=== PATIENT | female | born 1980 | race Two or more races ===

== ENCOUNTER 2017-06-09 10:12 | Inpatient (IN) | payer OTHER ==
[2017-06-09 10:21] VITALS: BMI 27.2
[2017-06-09] MEDS ORDERED: SODIUM CHLORIDE 1,000 ML IV STA ×2 (11:04→17:08)
[2017-06-09] MEDS ORDERED: ACETAMINOPHEN 1000 MG/100 ML VIAL (NON FORMULARY) IVPB ONE (11:04)
[2017-06-09] MEDS ORDERED: ACETAMINOPHEN INJECTION 100 ML IVPB ONE (11:18)
--- NOTE | 2017-06-09 11:22 | PDOC ---
History of Present Illness <Emilee Pastor - Last Filed: 06/09/17 15:29> - History of Present Illness Initial Comments: 06/09/17 11:18 "The patient is a 37 year old female, with significant past medical history of frequent UTIs, kidney stones, and type II diabetes, who presents to the emergency room today complaining of 3 days of right sided flank pain, fever, and 1 episode of vomiting this morning. The R flank pain is non-radiating, constant, and is not exacerbated with movement. She notes that she was at work when she had 1 episode of yellow emesis this morning. Last month she was treated for 2 UTIs and at the time she had hematuria, and dysuria which have resolved. Pt currently denies dysuria. Denies vaginal bleeding/discharge. Denies diarrhea and abdominal pain. Denies any trauma or heavy lifting. Denies sick contact. Denies recent travel. Denies vaginal discharge. Allergies: NKDA PCP: Dr. Aiden Shah " <Jarett Fenton - Last Filed: 06/09/17 15:39> - General Chief Complaint: Pain, Acute Stated Complaint: KIDNEY PAIN Time Seen by Provider: 06/09/17 10:39 Past History <Liss Pastorica - Last Filed: 06/09/17 15:29> - Past Medical History Asthma: No Cancer: No Cardiac Disorders: No Diabetes: Yes HTN: No Kidney Stones: Yes Seizures: No Thyroid Disease: No - Immunization History Immunization Up to Date: Yes - Suicide/Smoking/Psychosocial Hx Smoking History: Never smoked Have you smoked in the past 12 months: No Hx Alcohol Use: No Drug/Substance Use Hx: No Substance Use Type: None Hx Substance Use Treatment: No <Jarett Fenton - Last Filed: 06/09/17 15:39> - Past Medical History Allergies/Adverse Reactions: Allergies Allergy/AdvReac Type Severity Reaction Status Date / Time No Known Drug Allergies Allergy Verified 06/09/17 10:21 Home Medications: Ambulatory Orders Canagliflozin/Metformin HCl [Invokamet Xr 50-1,000 mg Tab] 2 each PO DAILY 06/09 Review of Systems - Review of Systems Comments:: 06/09/17 11:21 " GENERAL/CONSTITUTIONAL:+fever No chills. No weakness. HEAD, EYES, EARS, NOSE AND THROAT: No change in vision. No ear pain or discharge. No sore throat. CARDIOVASCULAR: No chest pain or shortness of breath. RESPIRATORY: No cough, wheezing, or hemoptysis. GASTROINTESTINAL: +1 episode of vomiting.No diarrhea or constipation. GENITOURINARY: No dysuria, frequency, or change in urination. MUSCULOSKELETAL:+right flank pain. No neck pain. SKIN: No rash NEUROLOGIC: No headache, vertigo, loss of consciousness, or change in strength/ sensation. ENDOCRINE: No increased thirst. No abnormal weight change. HEMATOLOGIC/LYMPHATIC: No anemia, easy bleeding, or history of blood clots. ALLERGIC/IMMUNOLOGIC: No hives or skin allergy." <JossyJarett - Last Filed: 06/09/17 15:39> *Physical Exam - Vital Signs Last Vital Signs Temp Pulse Resp BP Pulse Ox 98.1 F 79 18 110/62 99 06/09/17 13:12 06/09/17 13:12 06/09/17 13:12 06/09/17 13:12 06/09/17 13:12 <Emilee Pastor - Last Filed: 06/09/17 15:29> - Vital Signs Last Vital Signs Temp Pulse Resp BP Pulse Ox 100.2 F H 118 H 20 136/74 99 06/09/17 10:18 06/09/17 10:18 06/09/17 10:18 06/09/17 10:18 06/09/17 10:18 - Physical Exam Comments: 06/09/17 11:21 "GENERAL: Awake, alert, and fully oriented, in no acute distress HEAD: No signs of trauma EYES: PERRLA, EOMI, sclera anicteric, conjunctiva clear ENT: Auricles normal inspection, hearing grossly normal, nares patent, oropharynx clear without exudates. Moist mucosa NECK: Nontender, no stepoffs, Normal ROM, supple, no lymphadenopathy, JVD, or masses LUNGS: Breath sounds equal, clear to auscultation bilaterally. No wheezes, and no crackles HEART: Regular rate and rhythm, normal S1 and S2, no murmurs, rubs or gallops ABDOMEN: Soft, nontender, normoactive bowel sounds. No guarding, no rebound. No masses BACK: No CVA tenderness EXTREMITIES: Normal range of motion, no edema. No clubbing or cyanosis. No cords, erythema, or tenderness NEUROLOGICAL: Cranial nerves II through XII intact. 5/5 strength and sensation in all extremities, Normal speech, normal gait SKIN: Warm, Dry, normal turgor, no rashes or lesions noted." <Jarett Fenton - Last Filed: 06/09/17 15:39> ED Treatment Course - LABORATORY CBC & Chemistry Diagram: 06/09/17 11:40 06/09/17 11:40 - ADDITIONAL ORDERS Additional order review: Laboratory Results 06/09/17 06/09/17 11:40 11:11 Sodium 134 L Potassium 3.9 Chloride 99 Carbon Dioxide 26 Anion Gap 9 BUN 11 Creatinine 0.7 D Creat Clearance w eGFR > 60 Random Glucose 146 H D Calcium 8.6 Total Bilirubin 0.6 D AST 9 L D ALT 18 D Alkaline Phosphatase 86 D Total Protein 7.4 D Albumin 3.5 D Urine Color Yellow Urine Appearance Cloudy Urine pH 6.0 Urine Protein 1+ H Urine Glucose (UA) 3+ H Urine Ketones Trace H Urine Blood 2+ H Urine Nitrite Negative Urine Bilirubin Negative Urine Urobilinogen Negative Urine RBC 80 Urine WBC 626 Ur Epithelial Cells Few Urine Mucus Rare Urine HCG, Qual Negative 06/09/17 11:40 RBC 4.52 MCV 87.5 MCHC 32.9 RDW 12.7 MPV 8.2 D Neutrophils % 77.1 Lymphocytes % 11.2 D Monocytes % 11.1 H Eosinophils % 0.1 Basophils % 0.5 D - RADIOLOGY Radiograph Interpretation: 06/09/17 14:20 EXAM#: TYPE/EXAM: RESULT: [id number] RAD/CHEST PA LAT HISTORY PROVIDED: Fever . PA and lateral projections of the chest are submitted. The heart size is within normal limits. The lung roca are free of pulmonary infiltrates or pleural effusions. IMPRESSION: Normal chest. Reported By: Chriss Zabala MD 06/09/17 1342 06/09/17 15:21 EXAM: CT abdomen and pelvis without IV contrast COMPARISON: None. FINDINGS: Evaluation of the solid viscera, bowel and vessels is limited without contrast. There is no left renal or ureteral calculus. There is no left hydroureteronephrosis. There is lamellated , large staghorn calculus centered in the right renal pelvis extending into multiple major calyces of the right kidney and into the right ureteropelvic junction. It is difficult to measure this calculus, however it measures at least 2.8 x 1.6 x 2.9 cm in maximum transverse, AP and craniocaudal dimensions. There is resultant severe right hydronephrosis with asymmetric enlargement of the right kidney. No evidence of urinary bladder calculus or urinary bladder wall thickening. There are trace, bilateral layering pleural effusions with minimal dependent change in the left lung base. The heart is not enlarged. The liver is enlarged measuring up to 17 cm in length at the midclavicular line. There is moderate hepatic steatosis with geographic areas of sparing in the gallbladder fossa and caudate lobe. The gallbladder is not hydropic. The common bile duct is not dilated. The unenhanced pancreas is unremarkable. The spleen is borderline in size measuring up to 12.7 cm in length. There is no mass in the adrenal glands. The abdominal aorta is of normal caliber. There are nonspecific shotty subcentimeter aortocaval and para-aortic retroperitoneal lymph nodes. No dilated loops of large or small bowel to suggest obstruction. Normal- appearing appendix. Few diverticula scattered along the descending and sigmoid colon with no evidence of acute diverticulitis. No free intraperitoneal air or ascites. The uterus is unremarkable. Bilateral ovaries are prominent in size. There appear to be multiple cysts along the periphery of the left ovary. There are no pathologically enlarged pelvic sidewall lymph nodes by size criteria. There is asymmetric sclerosis in the left superior and inferior pubic rami which are presumably related to osteitis pubis subcentimeter sclerotic foci within the right acetabulum and right femoral head are most likely an enostosis. IMPRESSION: 1. Large right renal staghorn calculus as described above measuring at least 2.8 x 1.6 x 2.9 cm with resultant severe right hydronephrosis. Relative enlargement of the right kidney is likely secondary to severe right hydronephrosis, however, superimposed pyelonephritis cannot be excluded radiologically. Please correlate clinically. 2. Hepatomegaly and hepatic steatosis. 3. Prominent sized ovaries (left more than right) with suggestion of multiple peripheral cysts. This can be assessed to better advantage with pelvic sonogram, which may be performed non-emergently. Reported By: Lia Goncalves MD 06/09/17 [id number] - Medications Given in the ED: ED Medications Discontinued Medications Generic Name Dose Route Start Last Admin Trade Name Freq PRN Reason Stop Dose Admin Acetaminophen 1,000 mg 06/09/17 11:04 06/09/17 11:37 Ofirmev Injection - IVPB 06/09/17 11:05 1,000 mg ONCE ONE Administration Sodium Chloride 1,000 mls @ 1,000 mls/hr 06/09/17 11:04 06/09/17 11:37 Normal Saline - IV 06/09/17 12:03 1,000 mls/hr ASDIR STA Administration Ceftriaxone Sodium 1 gm/ 50 mls @ 100 mls/hr 06/09/17 13:17 06/09/17 13:30 Dextrose IVPB 06/09/17 13:46 100 mls/hr ONCE ONE Administration <Emilee Pastor - Last Filed: 06/09/17 15:29> - LABORATORY CBC & Chemistry Diagram: 06/09/17 11:40 06/09/17 11:40 - RADIOLOGY Radiology Studies Ordered: Category Date Time Status CHEST PA & LAT [RAD] Stat Radiology 06/09/17 11:04 Ordered <Jarett Fenton - Last Filed: 06/09/17 15:39> Medical Decision Making - Medical Decision Making 06/09/17 15:20 06/09/17 15:21 Dr. Queen was paged at [phone]. Awaiting call back 06/09/17 15:29 Dr. Queen called back and spoke with Dr. Fenton. <Emilee Pastor - Last Filed: 06/09/17 15:29> - Medical Decision Making 06/09/17 11:21 37 F with R flank pain, fevers, and nausea + vomiting. Concerning for pyelo vs kidney stone. No respiratory symptoms to suggest PNA. No GI symptoms other than 1 episode of vomiting. - Labs, UA - CXR - Consider CTAP to r/o infected stone - IVF, tylenol 06/09/17 15:38 Pt has UTI on today's labs. CT shows R sided staghorn calculus. Pt started on ceftriaxone IV Spoke with Dr. Barnett, who recommends admission for IV abx. He will evaluate pt. Case discussed in detail with admitting physician including history, physical exam and ancillary studies. Admitting physician has assumed care for the patient and will follow all pending diagnostics and complete the evaluation and treatment. <Jarett Fenton - Last Filed: 06/09/17 15:39> *DC/Admit/Observation/Transfer - Attestations Scribe Attestion: 06/09/17 14:34 Documentation prepared by ETHEL aCrvajal, acting as medical office receptionist assistant for Jarett Fenton MD. <Emilee Pastor - Last Filed: 06/09/17 15:29> - Discharge Dispostion Admit: Yes <Jarett Fenton - Last Filed: 06/09/17 15:39> Diagnosis at time of Disposition: Staghorn calculus, UTI (urinary tract infection) - Referrals Referrals: Aiden Shah MD [Primary Care Provider] -
[2017-06-09 11:53] LABS: BASOPHIL 0.5 % (0-2.0); EOSINOPHIL 0.1 % (0-4.5); MCH 28.8 pg (25.7-33.7); MCHC 32.9 g/dl (32.0-36.0); MEAN CELL VOLUME 87.5 fl (80-96); MEAN PLT VOLUME 8.2 fl (7.5-11.1); NEUTROPHILS 77.1 % (42.8-82.8); PLATELET COUNT 303 K/MM3 (134-434); RDW 12.7 % (11.6-15.6); WHITE BLOOD COUNT 16.3 K/mm3 (4.0-10.0)
[2017-06-09 12:29] LABS: ALBUMIN 3.5 g/dl (3.4-5.0); ANION GAP 9 (8-16); CALCIUM 8.6 mg/dL (8.5-10.1); CO2 26 mmol/L (21-32); CREATININE 0.7 mg/dL (0.55-1.02); GLUCOSE,RANDOM 146 mg/dL (74-106); SGOT/AST 9 U/L (15-37); SGPT/ALT 18 U/L (12-78)
[2017-06-09 12:31] LABS: ALK PHOS 86 U/L (45-117); BILIRUBIN,TOTAL 0.6 mg/dL (0.2-1.0); TOT PROT 7.4 g/dl (6.4-8.2)
[2017-06-09 12:46] LABS: URINE APPEARANCE CLOUDY; URINE BILIRUBIN NEGATIVE (NEGATIVE); URINE BLOOD 2+ (NEGATIVE); URINE COLOR YELLOW; URINE GLUCOSE (UA) 3+ (NEGATIVE); URINE KETONE TRACE (NEGATIVE); URINE LEUK ESTERASE 3+ (NEGATIVE); URINE NITRITE NEGATIVE (NEGATIVE); URINE PROTEIN 1+ (NEGATIVE); URINE UROBILINOGEN NEGATIVE mg/dL (0.2-1.0)
[2017-06-09 12:59] LABS: URINE MUCUS RARE; URINE RBC 80 /hpf (0-3); URINE WBC 626 /hpf (3-5)
[2017-06-09] MEDS ORDERED: CEFTRIAXONE 1 GM in DEXTROSE 5%-WATER - 50 ML IVPB ONE (13:17)
[2017-06-09] MEDS ORDERED: CEFTRIAXONE 50 ML ONE ×2 (13:44→17:17)
[2017-06-09] MEDS ORDERED: IBUPROFEN 600 MG TABLET (FP) PO ONE ×2 (15:58→16:38)
[2017-06-09] MEDS ORDERED: cefTRIAXone SODIUM 1 GM VIAL IM ONE (16:50)
--- NOTE | 2017-06-09 17:22 | PN ---
Teaching Attending Note Name of Resident: Rosales Vila ATTENDING PHYSICIAN STATEMENT I saw and evaluated the patient. I reviewed the resident's note and discussed the case with the resident. I agree with the resident's findings and plan as documented. SUBJECTIVE: OBJECTIVE: Vital Signs Temperature 102.3 F H 06/09/17 16:00 Pulse Rate 115 H 06/09/17 16:00 Respiratory Rate 17 06/09/17 16:00 Blood Pressure 120/78 06/09/17 16:00 O2 Sat by Pulse Oximetry (%) 98 06/09/17 16:00 CBCD WBC 16.3 K/mm3 (4.0-10.0) H 06/09/17 11:40 RBC 4.52 M/mm3 (3.60-5.2) 06/09/17 11:40 Hgb 13.0 GM/dL (10.7-15.3) D 06/09/17 11:40 Hct 39.5 % (32.4-45.2) D 06/09/17 11:40 MCV 87.5 fl (80-96) 06/09/17 11:40 MCHC 32.9 g/dl (32.0-36.0) 06/09/17 11:40 RDW 12.7 % (11.6-15.6) 06/09/17 11:40 Plt Count 303 K/MM3 (134-434) D 06/09/17 11:40 MPV 8.2 fl (7.5-11.1) D 06/09/17 11:40 CMP Sodium 134 mmol/L (136-145) L 06/09/17 11:40 Potassium 3.9 mmol/L (3.5-5.1) 06/09/17 11:40 Chloride 99 mmol/L (98-107) 06/09/17 11:40 Carbon Dioxide 26 mmol/L (21-32) 06/09/17 11:40 Anion Gap 9 (8-16) 06/09/17 11:40 BUN 11 mg/dL (7-18) 06/09/17 11:40 Creatinine 0.7 mg/dL (0.55-1.02) D 06/09/17 11:40 Creat Clearance w eGFR > 60 (>60) 06/09/17 11:40 Random Glucose 146 mg/dL (74-106) H D 06/09/17 11:40 Calcium 8.6 mg/dL (8.5-10.1) 06/09/17 11:40 Total Bilirubin 0.6 mg/dL (0.2-1.0) D 06/09/17 11:40 AST 9 U/L (15-37) L D 06/09/17 11:40 ALT 18 U/L (12-78) D 06/09/17 11:40 Alkaline Phosphatase 86 U/L (45-117) D 06/09/17 11:40 Total Protein 7.4 g/dl (6.4-8.2) D 06/09/17 11:40 Albumin 3.5 g/dl (3.4-5.0) D 06/09/17 11:40 Current Medications Generic Name Dose Route Start Last Admin Trade Name Freq PRN Reason Stop Dose Admin Ceftriaxone Sodium 1 gm 06/09/17 16:50 Rocephin - IM 06/09/17 16:51 ONCE ONE Sodium Chloride 1,000 mls @ 1,000 mls/hr 06/09/17 17:08 Normal Saline - IV 06/09/17 18:07 ASDIR STA Home Medications Medication Instructions Recorded Canagliflozin/Metformin HCl 1 each PO AM 06/09/17 [Invokamet 150-500 mg Tablet] Canagliflozin/Metformin HCl 2 each PO HS 06/09/17 [Invokamet 50-500 mg Tablet] ASSESSMENT AND PLAN: # acute pylonephritis # Acute sepsis, panculture , trend lactic, Ua/urine cx, urology on the case Dr.Ficcazola Ramirez 2gm IV given in ED. patient is going to OR tonight by urologist # T2dm hold metformin for now. Sliding scale with coverage. DVT px: SCDs
--- NOTE | 2017-06-09 18:16 | HP ---
CHIEF COMPLAINT: back pain; PCP: HISTORY OF PRESENT ILLNESS: 37 year old female with a past medical history of urinary tract infections, presents to the emergency room with right sided back pain, increased urinary burning and urgency. Patient was last treated for UTI one month ago, she states she took 7 days of antibiotic but the symptoms returned. Previous urine culture 04/29 for positive for E. Coli, barnes sensitive. ER course was notable for: fever, elevated white count, elevated lactic acid. Ct of abd/pelvis showing large right staghorn calculi with right hydronephrosis. Recent Travel: PAST MEDICAL HISTORY: UTI, DMII PAST SURGICAL HISTORY: Social History: Smoking:no Alcohol:no Drugs: no Family History: Allergies No Known Drug Allergies Allergy (Verified 06/09/17 10:21) HOME MEDICATIONS: Home Medications Medication Instructions Recorded Canagliflozin/Metformin HCl 1 each PO AM 06/09/17 [Invokamet 150-500 mg Tablet] Canagliflozin/Metformin HCl 2 each PO HS 06/09/17 [Invokamet 50-500 mg Tablet] REVIEW OF SYSTEMS CONSTITUTIONAL: Positive: fever, chills, Absent: diaphoresis, generalized weakness, malaise, loss of appetite, weight change HEENT: Absent: rhinorrhea, nasal congestion, throat pain, throat swelling, difficulty swallowing, mouth swelling, ear pain, eye pain, visual changes CARDIOVASCULAR: Absent: chest pain, syncope, palpitations, irregular heart rate, lightheadedness , peripheral edema RESPIRATORY: Absent: cough, shortness of breath, dyspnea with exertion, orthopnea, wheezing, stridor, hemoptysis GASTROINTESTINAL: Absent: abdominal pain, abdominal distension, nausea, vomiting, diarrhea, constipation, melena, hematochezia GENITOURINARY: Absent: dysuria, frequency, urgency, hesitancy, hematuria, flank pain, genital pain MUSCULOSKELETAL: POsitive: back pain Absent: myalgia, arthralgia, joint swelling, back pain, neck pain SKIN: Absent: rash, itching, pallor HEMATOLOGIC/IMMUNOLOGIC: Absent: easy bleeding, easy bruising, lymphadenopathy, frequent infections ENDOCRINE: Absent: unexplained weight gain, unexplained weight loss, heat intolerance, cold intolerance NEUROLOGIC: Absent: headache, focal weakness or paresthesias, dizziness, unsteady gait, seizure, mental status changes, bladder or bowel incontinence PSYCHIATRIC: Absent: anxiety, depression, suicidal or homicidal ideation, hallucinations. PHYSICAL EXAMINATION Vital Signs - 24 hr 06/09/17 16:00 Temperature 102.3 F H Pulse Rate [ 115 H Apical] Respiratory 17 Rate Blood Pressure 120/78 [Right Arm] O2 Sat by Pulse 98 Oximetry (%) GENERAL: Awake, alert, and fully oriented, in no acute distress. HEAD: Normal with no signs of trauma. EYES: Pupils equal, round and reactive to light, extraocular movements intact, sclera anicteric, conjunctiva clear. No lid lag. EARS, NOSE, THROAT: Ears normal, nares patent, oropharynx clear without exudates. Moist mucous membranes. NECK: Normal range of motion, supple without lymphadenopathy, JVD, or masses. LUNGS: Breath sounds equal, clear to auscultation bilaterally. No wheezes, and no crackles. No accessory muscle use. HEART: Regular rate and rhythm, normal S1 and S2 without murmur, rub or gallop. ABDOMEN: Soft, nontender, not distended, normoactive bowel sounds, no guarding, no rebound, no masses. No hepatomegaly or splenomegaly. MUSCULOSKELETAL: Normal range of motion at all joints. No bony deformities or tenderness. No CVA tenderness. UPPER EXTREMITIES: 2+ pulses, warm, well-perfused. No cyanosis. No clubbing. No peripheral edema. LOWER EXTREMITIES: 2+ pulses, warm, well-perfused. No calf tenderness. No peripheral edema. NEUROLOGICAL: Cranial nerves II-XII intact. Normal speech. Normal gait. PSYCHIATRIC: Cooperative. Good eye contact. Appropriate mood and affect. SKIN: Warm, dry, normal turgor, no rashes or lesions noted, normal capillary refill. ASSESSMENT/PLAN: 37 year olf female with a past medical history of UTI's presents with right back pain and urinary symptoms, found to be sepstic with acute pyelonephritis. #sepsis secondary to pyelonephritis with obstructing stone -trend lactate, wbc -Tylenol -IV ceftiaxone -f/u blood and urine culture -urology consult; will go for right nephrostomy tube #DM -insulin ss; bgm dvt ppl Visit type - Emergency Visit Emergency Visit: Yes ED Registration Date: 06/09/17 Care time: The patient presented to the Emergency Department on the above date and was hospitalized for further evaluation of their emergent condition. - New Patient This patient is new to me today: Yes Date on this admission: 06/09/17 - Critical Care Critical Care patient: No
[2017-06-09] MEDS ORDERED: PNEUMOC 13-VAL CONJ-DIP CRM/PF 0.5 ML DISP.SYRIN IM ONE (18:46)
--- NOTE | 2017-06-09 18:55 | CON.GU ---
Consult - History of Present Illness History of Present Illness: 37 yo female with h/o recurrent utis and remote h/o nephrolithiaisis. Now with right flank pain, fever. CT shows Staghorn calculus of rt kidney with hydronephrosis. Pt has elevated WBC of 16 and lactic acid of 4 - Past Medical History Cardio/Vascular: Yes: HTN. No: CHF ...LMP: 04/20/16 Endocrine: Yes: Diabetes Mellitus (Type 2 - follows with endocrinology). No: Hyperthyroidism, Hypothyroidism - Past Surgical History Past Surgical History: Yes: - Alcohol/Substance Use Hx Alcohol Use: No History of Substance Use: reports: None - Smoking History Smoking history: Never smoked Have you smoked in the past 12 months: No - Social History ADL: Independent History of Recent Travel: No Home Medications - Allergies Allergies/Adverse Reactions: Allergies Allergy/AdvReac Type Severity Reaction Status Date / Time No Known Drug Allergies Allergy Verified 06/09/17 10:21 - Home Medications Home Medications: Ambulatory Orders Canagliflozin/Metformin HCl [Invokamet Xr 50-1,000 mg Tab] 1 each PO BID Review of Systems - Review of Systems Genitourinary: reports: Burning Physical Exam- Vital Signs: Vital Signs Temperature 101 F H 06/09/17 17:45 Pulse Rate 112 H 06/09/17 17:45 Respiratory Rate 18 06/09/17 17:45 Blood Pressure 138/90 06/09/17 17:45 O2 Sat by Pulse Oximetry (%) 98 06/09/17 17:45 Imaging - Results Cat Scan: Image Reviewed Problem List - Problems (1) Staghorn calculus Assessment/Plan: In light of fever, elevated WBC, lactic acidosis, and obstructing stone, will plan for emergent right nephrostomy tube placement. I have spoken to Dr Peters from IR. Also recommend broad spectrum antibiotics while awaiting cultures. ID consult recommended Code(s): N20.0 - CALCULUS OF KIDNEY
[2017-06-09] MEDS ORDERED: PNEUMOCOCCAL 23 VACCINE 0.5 ML VIAL IM ONE (19:15)
[2017-06-09] MEDS ORDERED: ACETAMINOPHEN 325 MG TABLET (FP) PO ONE (19:46)
[2017-06-09] MEDS ORDERED: SODIUM CHLORIDE 1,000 ML IV SCH (20:00)
[2017-06-09 20:20] LABS: INR 1.18 (0.82-1.09)
--- NOTE | 2017-06-09 21:43 | HP ---
CHIEF COMPLAINT: right flank pain PCP: HISTORY OF PRESENT ILLNESS: 37F w/ hx of recurrent UTIs, remote h/o nephrolithiasis, and DMT2 presenting with right flank pain. Pt endorses fevers, increased dysuria, and urinary urgency. Of note, pt was last treated for a UTI 1 month ago for which she took a 7-day course of abx. However, her symptoms returned. Her previous Ucx (04/29) grew E. coli and was barnes-sensitive. ER course was notable for: (1) fever, leukocytosis, lactic acidosis (2) Ct showing large right staghorn calculi with right hydronephrosis (3) Recent Travel: no PAST MEDICAL HISTORY: recurrent UTIs, remote h/o nephrolithiasis, and DMT2 PAST SURGICAL HISTORY: Social History: Smoking: no Alcohol: no Drugs: no Family History: Allergies No Known Drug Allergies Allergy (Verified 06/09/17 10:21) HOME MEDICATIONS: Home Medications Medication Instructions Recorded Canagliflozin/Metformin HCl 1 each PO BID 06/09/17 [Invokamet Xr 50-1,000 mg Tab] REVIEW OF SYSTEMS CONSTITUTIONAL: Absent: diaphoresis, generalized weakness, malaise, loss of appetite, weight change Present: fevers HEENT: Absent: rhinorrhea, nasal congestion, throat pain, throat swelling, difficulty swallowing, mouth swelling, ear pain, eye pain, visual changes CARDIOVASCULAR: Absent: chest pain, syncope, palpitations, irregular heart rate, lightheadedness , peripheral edema RESPIRATORY: Absent: cough, shortness of breath, dyspnea with exertion, orthopnea, wheezing, stridor, hemoptysis GASTROINTESTINAL: Absent: abdominal pain, abdominal distension, nausea, vomiting, diarrhea, constipation, melena, hematochezia GENITOURINARY: Absent: dysuria, frequency, urgency, hesitancy, hematuria, flank pain, genital pain MUSCULOSKELETAL: Absent: myalgia, arthralgia, joint swelling, neck pain Positive: flank pain SKIN: Absent: rash, itching, pallor HEMATOLOGIC/IMMUNOLOGIC: Absent: easy bleeding, easy bruising, lymphadenopathy, frequent infections ENDOCRINE: Absent: unexplained weight gain, unexplained weight loss, heat intolerance, cold intolerance NEUROLOGIC: Absent: headache, focal weakness or paresthesias, dizziness, unsteady gait, seizure, mental status changes, bladder or bowel incontinence PSYCHIATRIC: Absent: anxiety, depression, suicidal or homicidal ideation, hallucinations. PHYSICAL EXAMINATION Vital Signs - 24 hr 06/09/17 06/09/17 06/09/17 16:00 17:45 18:51 Temperature 102.3 F H 101 F H 101.2 F H Pulse Rate 112 H 109 H Pulse Rate [ 115 H Apical] Respiratory 17 18 18 Rate Blood Pressure 138/90 128/82 Blood Pressure 120/78 [Right Arm] O2 Sat by Pulse 98 98 Oximetry (%) GENERAL: Awake, alert, and fully oriented, in NAD. HEAD: Normal with no signs of trauma. EYES: Pupils equal, round and reactive to light, extraocular movements intact, sclera anicteric, conjunctiva clear. No lid lag. EARS, NOSE, THROAT: Ears normal, nares patent, oropharynx clear without exudates. Moist mucous membranes. NECK: Normal range of motion, supple without lymphadenopathy, JVD, or masses. LUNGS: Breath sounds equal, clear to auscultation bilaterally. No wheezes, and no crackles. No accessory muscle use. HEART: Regular rate and rhythm, normal S1 and S2 without murmur, rub or gallop. ABDOMEN: normoactive BS,soft, NT, ND, no organomegaly MUSCULOSKELETAL: Normal range of motion at all joints. No bony deformities or tenderness. UPPER EXTREMITIES: 2+ pulses, warm, well-perfused. No cyanosis. No clubbing. No peripheral edema. LOWER EXTREMITIES: 2+ pulses, warm, well-perfused. No calf tenderness. No peripheral edema. NEUROLOGICAL: Cranial nerves II-XII intact. Normal speech. gait not observed SKIN: Warm, dry, normal turgor, no rashes or lesions noted, normal capillary refill. Laboratory Tests 06/09/17 06/09/17 06/09/17 11:11 11:40 11:40 WBC 16.3 H RBC 4.52 Hgb 13.0 D Hct 39.5 D MCV 87.5 MCH 28.8 MCHC 32.9 RDW 12.7 Plt Count 303 D MPV 8.2 D Neutrophils % 77.1 Lymphocytes % 11.2 D Monocytes % 11.1 H Eosinophils % 0.1 Basophils % 0.5 D PT with INR INR PTT (Actin FS) Sodium 134 L Potassium 3.9 Chloride 99 Carbon Dioxide 26 Anion Gap 9 BUN 11 Creatinine 0.7 D Creat Clearance w eGFR > 60 POC Glucometer Random Glucose 146 H D Lactic Acid Calcium 8.6 Total Bilirubin 0.6 D AST 9 L D ALT 18 D Alkaline Phosphatase 86 D Total Protein 7.4 D Albumin 3.5 D Urine Color Yellow Urine Appearance Cloudy Urine pH 6.0 Ur Specific [place] 1.015 Urine Protein 1+ H Urine Glucose (UA) 3+ H Urine Ketones Trace H Urine Blood 2+ H Urine Nitrite Negative Urine Bilirubin Negative Urine Urobilinogen Negative Urine RBC 80 Urine WBC 626 Ur Epithelial Cells Few Urine Mucus Rare Urine HCG, Qual Negative 06/09/17 06/09/17 06/09/17 17:30 19:30 19:59 WBC RBC Hgb Hct MCV MCH MCHC RDW Plt Count MPV Neutrophils % Lymphocytes % Monocytes % Eosinophils % Basophils % PT with INR 13.00 H INR 1.18 H PTT (Actin FS) 31.1 Sodium Potassium Chloride Carbon Dioxide Anion Gap BUN Creatinine Creat Clearance w eGFR POC Glucometer Random Glucose Lactic Acid 4.0 H* Calcium Total Bilirubin AST ALT Alkaline Phosphatase Total Protein Albumin Urine Color Urine Appearance Urine pH Ur Specific [place] Urine Protein Urine Glucose (UA) Urine Ketones Urine Blood Urine Nitrite Urine Bilirubin Urine Urobilinogen Urine RBC Urine WBC Ur Epithelial Cells Urine Mucus Urine HCG, Qual 06/09/17 06/09/17 21:10 22:23 WBC RBC Hgb Hct MCV MCH MCHC RDW Plt Count MPV Neutrophils % Lymphocytes % Monocytes % Eosinophils % Basophils % PT with INR INR PTT (Actin FS) Sodium Potassium Chloride Carbon Dioxide Anion Gap BUN Creatinine Creat Clearance w eGFR POC Glucometer 170 Random Glucose Lactic Acid 1.1 Calcium Total Bilirubin AST ALT Alkaline Phosphatase Total Protein Albumin Urine Color Urine Appearance Urine pH Ur Specific [place] Urine Protein Urine Glucose (UA) Urine Ketones Urine Blood Urine Nitrite Urine Bilirubin Urine Urobilinogen Urine RBC Urine WBC Ur Epithelial Cells Urine Mucus Urine HCG, Qual ASSESSMENT/PLAN: 37F w/ hx of recurrent UTIs, remote h/o nephrolithiasis, and DMT2 presenting with right flank pain, fevers, increased dysuria, and urinary urgency, with an exam notable for fever and tachycardia, found to have a leukocytosis, lactic acidosis, a UA with 626 wbcs, and a large right staghorn calculus with right hydronephrosis on imaging, admitted for nephrolithiasis and pyelonephritis. #severe sepsis- 2/2 pyelonephritis -ID on board- Dr. Guthrie, f/u recs -Tylenol -IV ceftiaxone -trend lactate, wbc -f/u blood and urine culture #nephrolithiasis -urology on board- Dr. Queen. per his note, pt to go for emergency right nephrostomy tube -f/u further recs #DM -SSI -bgm ACHS #FEN/PPx -NS at 200 -wnl -NPO -no GI ppx indicated -SCDs Rosales Vila MD PGY1 Visit type - Emergency Visit Emergency Visit: Yes ED Registration Date: 06/09/17 Care time: The patient presented to the Emergency Department on the above date and was hospitalized for further evaluation of their emergent condition. - New Patient This patient is new to me today: Yes Date on this admission: 06/10/17 - Critical Care Critical Care patient: No
[2017-06-09] MEDS: SODIUM CHLORIDE 1,000 ML IV SCH (21:56)
[2017-06-09] MEDS: INSULIN SLIDING SCALE (NOVOLOG) 1 VIAL SQ SCH (22:57)
[2017-06-10] MEDS ORDERED: ACETAMINOPHEN 500 MG TABLET (FP) PO ONE (01:48)
[2017-06-10] MEDS: SODIUM CHLORIDE 1,000 ML IV SCH ×4 (02:56→23:11)
[2017-06-10] MEDS: INSULIN SLIDING SCALE (NOVOLOG) 1 VIAL SQ SCH ×5 (06:17→23:14)
[2017-06-10 08:27] LABS: MCH 28.6 pg (25.7-33.7); MCHC 32.2 g/dl (32.0-36.0); MEAN CELL VOLUME 88.8 fl (80-96); MEAN PLT VOLUME 9.2 fl (7.5-11.1); PLATELET COUNT 259 K/MM3 (134-434); WHITE BLOOD COUNT 16.9 K/mm3 (4.0-10.0)
[2017-06-10 08:59] LABS: ALBUMIN 2.7 g/dl (3.4-5.0); ANION GAP 11 (8-16); CO2 21 mmol/L (21-32); CREATININE 0.6 mg/dL (0.55-1.02); GLUCOSE,RANDOM 129 mg/dL (74-106); MAGNESIUM 2.1 mg/dL (1.8-2.4); PHOSPHOROUS 2.3 mg/dL (2.5-4.9); SGOT/AST 13 U/L (15-37); SGPT/ALT 15 U/L (12-78)
[2017-06-10 09:00] LABS: ALK PHOS 75 U/L (45-117); BILIRUBIN,TOTAL 0.5 mg/dL (0.2-1.0); TOT PROT 6.7 g/dl (6.4-8.2)
[2017-06-10] MEDS ORDERED: NAPH,MB-DB/K PH,MBDB POWDER PACKET PO ONE (09:45)
[2017-06-10] MEDS ORDERED: DEXTROSE 5%-WATER 100 ML IVPB ONE ×2 (09:52→16:47)
[2017-06-10] MEDS: HEPARIN NA (PORCINE) 5,000 UNITS/ML 1ML VIAL SQ SCH ×3 (09:52→23:11)
[2017-06-10 09:57] LABS: PLATELET ESTIMATE ADEQUATE (NORMAL); TOTAL CELLS COUNTED 100
[2017-06-10] MEDS ORDERED: cefTRIAXone 2 GM/100 ML BAG (PRE-DOCKED) IVPB SCH (10:00)
[2017-06-10] MEDS ORDERED: CEFTRIAXONE 2 GM in DEXTROSE 5%-WATER 100 ML IVPB SCH (10:00)
[2017-06-10] MEDS: ACETAMINOPHEN 325 MG TABLET (FP) PO PRN ×3 (11:14→23:19)
--- NOTE | 2017-06-10 12:03 | PN ---
Progress Note (short form) - Note Progress Note: less flank pain s/p rt nephrostomy tube placement yesterday NT draining yellow urine still spiking temps abx as per ID once infection has cleared, will need stone burden treated Problem List - Problems (1) Staghorn calculus Code(s): N20.0 - CALCULUS OF KIDNEY
--- NOTE | 2017-06-10 15:53 | PN ---
Progress Note (short form) - Note Progress Note: ID Consult dictated R staghorn calculus/ HN s/p PCN R pyelonephritis Recurrent UTI Possible sepsis secondary to UTI lactic acidosis Await c/s Empiric zosyn
--- NOTE | 2017-06-10 16:15 | CONS ---
INFECTIOUS DISEASE CONSULTATION DATE OF CONSULTATION: DATE OF DICTATION: 06/10/2017 HISTORY OF PRESENT ILLNESS: The patient is a 37-year-old female with a remote history of nephrolithiasis approximately 15 years ago, history of recurrent urinary tract infections, now evaluated for pyelonephritis. The patient was admitted to the hospital with a 3-day history of worsening right-sided flank pain. She developed fever and an episode of nausea and vomiting just prior to admission. She had completed a 7-day course of an oral antibiotic, the name of which she was unsure of, for a urinary tract infection. She presented to the hospital where urinalysis showed many white cells. She was also noted to have a markedly elevated white blood cell count and a lactic acidosis. She was empirically treated with ceftriaxone. A urine culture is now growing a non-lactose geoscience specialist. Blood cultures have preliminarily been negative. A CAT scan of the abdomen and pelvis showed a large right staghorn calculus as well as right-sided hydronephrosis. The patient was seen in consult by Urology and underwent a right percutaneous nephrostomy. She continues to complain of pain at the right flank, which is improved. She has had persistent fever in the hospital to 103. Denies shaking chills. She denies any dysuria or hematuria. PAST MEDICAL HISTORY: Positive for nephrolithiasis approximately 15 years ago; history of recurrent urinary tract infections; diabetes mellitus, type 2. ALLERGIES: No known allergies. MEDICATIONS: Tylenol, ceftriaxone, heparin, NovoLog. SOCIAL HISTORY: She lives at home. She has children. She is a nonsmoker, nondrinker. SYSTEMS REVIEW: Neurologic: No loss of consciousness, seizure activity, or focal weakness. Cardiac: Negative chest pain or palpitations. Respiratory: Negative cough or sputum production. Gastrointestinal: Positive for nausea and vomiting. No diarrhea. Genitourinary: As per HPI. LABORATORY DATA: White count is 16.9 with left shift, hematocrit 38.9, platelet count 259. Urinalysis shows pH 6.0, white cells 626. Lactic acid 4.0. BUN 7, creatinine 0.6. PHYSICAL EXAMINATION: General: She is awake. She is in no acute distress. Vital Signs: T-max 103; blood pressure 118/65; pulse 102, regular; respirations 20 per minute. HEENT: Sclerae are anicteric. Heart: Sounds S1, S2. No murmur. Lungs: Clear. Abdomen: Soft, right-sided abdominal tenderness. There is right CVA tenderness. A percutaneous nephrostomy tube is in place in the right flank with clear urine. Extremities: Negative for edema. IMPRESSION: 1. Right pyelonephritis. 2. Staghorn calculus, right kidney. 3. Hydronephrosis, status post percutaneous nephrostomy. 4. Recurrent urinary tract infection. 5. Lactic acidosis. Await identification of urine isolate. Pending blood and urine cultures, we will broaden antimicrobial coverage in light of persistent fever. We will give Zosyn 4.5 g IV piggyback every 8 hours, IV fluid hydration, analgesics. We will follow. Thank you for the kind referral. TOBY VARGAS M.D. [id number]
[2017-06-10] MEDS ORDERED: PIPERACILLIN/TAZOBACTAM 4.5 GM VIAL IVPB ONE (16:47)
[2017-06-10] MEDS: PIPERACILLIN/TAZOB 4.5 GM 4.5 GM in DEXTROSE 5%-WATER 100 ML IVPB SCH (16:49)
--- NOTE | 2017-06-10 16:49 | PN ---
Physical Exam: SUBJECTIVE: Patient seen and examined. Pt has no complaints this am. She has no fevers OBJECTIVE: Vital Signs Period Temp Pulse Resp BP Sys/Perry Pulse Ox Last 24 Hr 99.8 F-103.1 F 92-117 18-20 117-143/58-90 97-98 GENERAL: The patient is awake, alert, and fully oriented, in no acute distress. HEAD: Normal with no signs of trauma. EYES: PERRL, extraocular movements intact, sclera anicteric, conjunctiva clear. No ptosis. ENT: Ears normal, nares patent, oropharynx clear without exudates, moist mucous membranes. NECK: Trachea midline, full range of motion, supple. LUNGS: Breath sounds equal, clear to auscultation bilaterally, no wheezes, no crackles, no accessory muscle use. HEART: Regular rate and rhythm, S1, S2 without murmur, rub or gallop. ABDOMEN: Soft, nontender, nondistended, normoactive bowel sounds, no guarding, no rebound, no hepatosplenomegaly, no masses. EXTREMITIES: 2+ pulses, warm, well-perfused, no edema. NEUROLOGICAL: Cranial nerves II through XII grossly intact. Normal speech, gait not observed. PSYCH: Normal mood, normal affect. SKIN: Warm, dry, normal turgor, no rashes or lesions noted Laboratory Results - last 24 hr 06/09/17 06/09/17 06/09/17 17:30 19:30 19:59 WBC RBC Hgb Hct MCV MCH MCHC RDW Plt Count MPV Total Counted Neutrophils % Neutrophils % (Manual) Band Neuts % (Manual) Lymphocytes % Lymphocytes % (Manual) Monocytes % (Manual) Platelet Estimate PT with INR 13.00 H INR 1.18 H PTT (Actin FS) 31.1 Sodium Potassium Chloride Carbon Dioxide Anion Gap BUN Creatinine Creat Clearance w eGFR POC Glucometer Random Glucose Lactic Acid 4.0 H* Calcium Phosphorus Magnesium Total Bilirubin AST ALT Alkaline Phosphatase Total Protein Albumin 06/09/17 06/09/17 06/10/17 21:10 22:23 06:07 WBC RBC Hgb Hct MCV MCH MCHC RDW Plt Count MPV Total Counted Neutrophils % Neutrophils % (Manual) Band Neuts % (Manual) Lymphocytes % Lymphocytes % (Manual) Monocytes % (Manual) Platelet Estimate PT with INR INR PTT (Actin FS) Sodium Potassium Chloride Carbon Dioxide Anion Gap BUN Creatinine Creat Clearance w eGFR POC Glucometer 170 124 Random Glucose Lactic Acid 1.1 Calcium Phosphorus Magnesium Total Bilirubin AST ALT Alkaline Phosphatase Total Protein Albumin 06/10/17 06/10/17 06/10/17 06:45 06:45 12:07 WBC 16.9 H RBC 4.38 Hgb 12.5 Hct 38.9 MCV 88.8 MCH 28.6 MCHC 32.2 RDW 13.0 Plt Count 259 MPV 9.2 D Total Counted 100 Neutrophils % No Result Required. Neutrophils % (Manual) 85 H Band Neuts % (Manual) 2 Lymphocytes % No Result Required. Lymphocytes % (Manual) 6 L Monocytes % (Manual) 7 Platelet Estimate Adequate PT with INR INR PTT (Actin FS) Sodium 136 Potassium 3.9 Chloride 104 Carbon Dioxide 21 Anion Gap 11 BUN 7 D Creatinine 0.6 Creat Clearance w eGFR > 60 POC Glucometer 190 Random Glucose 129 H Lactic Acid Calcium 8.0 L Phosphorus 2.3 L Magnesium 2.1 Total Bilirubin 0.5 AST 13 L D ALT 15 Alkaline Phosphatase 75 Total Protein 6.7 Albumin 2.7 L D Active Medications Generic Name Dose Route Start Last Admin Trade Name Freq PRN Reason Stop Dose Admin Acetaminophen 650 mg 06/10/17 07:53 06/10/17 11:14 Tylenol - PO 650 mg Q4H PRN Administration FEVER OR PAIN Heparin Sodium (Porcine) 5,000 unit 06/10/17 08:00 06/10/17 09:52 Heparin - SQ 5,000 unit TID VANDANA Administration Sodium Chloride 1,000 mls @ 200 mls/hr 06/09/17 20:30 06/10/17 09:48 Normal Saline - IV 200 mls/hr ASDIR VANDANA Administration Piperacillin Sod/Tazobactam 100 mls @ 200 mls/hr 06/10/17 16:00 Sod 4.5 gm/ Dextrose IVPB Q8H-IV VANDANA Protocol Insulin Aspart 1 vial 06/09/17 22:00 06/10/17 12:28 Novolog Vial Sliding Scale - SQ 2 units ACHS VANDANA Administration Protocol ASSESSMENT/PLAN: 37F w/ hx of recurrent UTIs, remote h/o nephrolithiasis, and DMT2 presenting with right flank pain, fevers, increased dysuria, and urinary urgency, with an exam notable for fever and tachycardia, found to have a leukocytosis, lactic acidosis, a UA with 626 wbcs, and a large right staghorn calculus with right hydronephrosis on imaging, admitted for nephrolithiasis and pyelonephritis, s/p right nephrostomy tube. #severe sepsis- 2/2 pyelonephritis -ID on board- tram Garcia appreciated -Tylenol PRN -ceftriaxone changed to zosyn for broader coverage in light of high fevers. -trend lactate, wbc -blood cx: NTD -urine cx: non-lactose fermenting GNB #nephrolithiasis s/p right nephrostomy tube -urology on board- tram Rivera appreciated. Stone burden to be decreased after infection resolves. -nephrostomy draining clear urine #DM -SSI -bgm ACHS #FEN/PPx -NS at 200 -wnl -NPO -no GI ppx indicated -SCDs Rosales Vila MD PGY1 Visit type - Emergency Visit Emergency Visit: Yes ED Registration Date: 06/09/17 Care time: The patient presented to the Emergency Department on the above date and was hospitalized for further evaluation of their emergent condition. - New Patient This patient is new to me today: No - Critical Care Critical Care patient: No
--- NOTE | 2017-06-10 19:45 | PN ---
Teaching Attending Note Name of Resident: Rosales Vila ATTENDING PHYSICIAN STATEMENT I saw and evaluated the patient. I reviewed the resident's note and discussed the case with the resident. I agree with the resident's findings and plan as documented. SUBJECTIVE: Patient presented with fever of 102.1, with HR of 101, with Rigors. OBJECTIVE: Vital Signs Temperature 102.1 F H 06/10/17 18:00 Pulse Rate 101 H 06/10/17 18:00 Respiratory Rate 20 06/10/17 18:00 Blood Pressure 144/71 06/10/17 18:00 O2 Sat by Pulse Oximetry (%) 97 06/10/17 09:00 CBCD WBC 16.9 K/mm3 (4.0-10.0) H 06/10/17 06:45 RBC 4.38 M/mm3 (3.60-5.2) 06/10/17 06:45 Hgb 12.5 GM/dL (10.7-15.3) 06/10/17 06:45 Hct 38.9 % (32.4-45.2) 06/10/17 06:45 MCV 88.8 fl (80-96) 06/10/17 06:45 MCHC 32.2 g/dl (32.0-36.0) 06/10/17 06:45 RDW 13.0 % (11.6-15.6) 06/10/17 06:45 Plt Count 259 K/MM3 (134-434) 06/10/17 06:45 MPV 9.2 fl (7.5-11.1) D 06/10/17 06:45 CMP Sodium 136 mmol/L (136-145) 06/10/17 06:45 Potassium 3.9 mmol/L (3.5-5.1) 06/10/17 06:45 Chloride 104 mmol/L (98-107) 06/10/17 06:45 Carbon Dioxide 21 mmol/L (21-32) 06/10/17 06:45 Anion Gap 11 (8-16) 06/10/17 06:45 BUN 7 mg/dL (7-18) D 06/10/17 06:45 Creatinine 0.6 mg/dL (0.55-1.02) 06/10/17 06:45 Creat Clearance w eGFR > 60 (>60) 06/10/17 06:45 Random Glucose 129 mg/dL (74-106) H 06/10/17 06:45 Calcium 8.0 mg/dL (8.5-10.1) L 06/10/17 06:45 Total Bilirubin 0.5 mg/dL (0.2-1.0) 06/10/17 06:45 AST 13 U/L (15-37) L D 06/10/17 06:45 ALT 15 U/L (12-78) 06/10/17 06:45 Alkaline Phosphatase 75 U/L (45-117) 06/10/17 06:45 Total Protein 6.7 g/dl (6.4-8.2) 06/10/17 06:45 Albumin 2.7 g/dl (3.4-5.0) L D 06/10/17 06:45 Current Medications Generic Name Dose Route Start Last Admin Trade Name Freq PRN Reason Stop Dose Admin Acetaminophen 650 mg 06/10/17 07:53 06/10/17 16:50 Tylenol - PO 650 mg Q4H PRN Administration FEVER OR PAIN Heparin Sodium (Porcine) 5,000 unit 06/10/17 08:00 06/10/17 16:44 Heparin - SQ 5,000 unit TID VANDANA Administration Sodium Chloride 1,000 mls @ 200 mls/hr 06/09/17 20:30 06/10/17 16:45 Normal Saline - IV 200 mls/hr ASDIR VANDANA Administration Piperacillin Sod/Tazobactam 100 mls @ 200 mls/hr 06/10/17 16:00 06/10/17 16:49 Sod 4.5 gm/ Dextrose IVPB 200 mls/hr Q8H-IV VANDANA Administration Protocol Insulin Aspart 1 vial 06/09/17 22:00 06/10/17 17:52 Novolog Vial Sliding Scale - SQ 2 units ACHS VANDANA Administration Protocol Home Medications Medication Instructions Recorded Canagliflozin/Metformin HCl 1 each PO BID 06/09/17 [Invokamet Xr 50-1,000 mg Tab] PE: looks ill Heart: Tachycardic, S1S2 positive abdomen: soft, NT, acute CVA tenderness ExT:pulses are positive Neuro: AAOx3 Rest of PE per resident's note CT abd/pelvis: large right staghorn calculus with right hydronephrosis around 2.8cmx1.6x2.9cm ASSESSMENT AND PLAN: Patient is a 37F w/ hx of recurrent UTIs, with h/o nephrolithiasis, and T2DM presented with right flank pain, fevers, increased dysuria, and urinary urgency , # Acute sepsis due to UTI/pyelonephritis due to large right staghorn calculi with right hydronephrosis; Dr hamlin on board, taken the patient for nephrostomy tube. Panculture was ordered, Zosyn IV was started as per ID, s/p Rocephin given in ED. #Nephrolithiasis s/p right nephrostomy tube by urologist ;Dr. Hamlin. Once patient is stable will go for Lithotripsy #DM : Sliding scale with coverage. Hold metformin DVT px; Heparin
[2017-06-11] MEDS ORDERED: PIPERACILLIN/TAZOBACTAM 4.5 GM VIAL IVPB ONE ×3 (02:19→17:42)
[2017-06-11] MEDS ORDERED: DEXTROSE 5%-WATER 100 ML IVPB ONE ×3 (02:20→17:43)
[2017-06-11] MEDS: PIPERACILLIN/TAZOB 4.5 GM 4.5 GM in DEXTROSE 5%-WATER 100 ML IVPB SCH ×3 (02:40→18:05)
[2017-06-11] MEDS: ACETAMINOPHEN 325 MG TABLET (FP) PO PRN ×2 (03:29→15:02)
[2017-06-11] MEDS: HEPARIN NA (PORCINE) 5,000 UNITS/ML 1ML VIAL SQ SCH ×3 (06:29→21:41)
[2017-06-11] MEDS: SODIUM CHLORIDE 1,000 ML IV SCH ×4 (06:29→22:30)
[2017-06-11] MEDS: INSULIN SLIDING SCALE (NOVOLOG) 1 VIAL SQ SCH ×4 (06:30→21:40)
--- NOTE | 2017-06-11 08:09 | PN ---
Progress Note (short form) - Note Progress Note: feels better NT draining yellow urine temperature curve improving abx as per ID once infection has cleared, will need stone burden treated Problem List - Problems (1) Staghorn calculus Code(s): N20.0 - CALCULUS OF KIDNEY
[2017-06-11 08:15] LABS: BASOPHIL 0.3 % (0-2.0); EOSINOPHIL 0.2 % (0-4.5); MCH 28.8 pg (25.7-33.7); MCHC 33.1 g/dl (32.0-36.0); MEAN PLT VOLUME 8.4 fl (7.5-11.1); NEUTROPHILS 59.9 % (42.8-82.8); PLATELET COUNT 247 K/MM3 (134-434); RDW 12.9 % (11.6-15.6); WHITE BLOOD COUNT 12.1 K/mm3 (4.0-10.0)
[2017-06-11 09:13] LABS: ANION GAP 8 (8-16); CALCIUM 7.8 mg/dL (8.5-10.1); CO2 23 mmol/L (21-32); CREATININE 0.6 mg/dL (0.55-1.02); GLUCOSE,RANDOM 143 mg/dL (74-106); PHOSPHOROUS 1.5 mg/dL (2.5-4.9)
--- NOTE | 2017-06-11 13:58 | PN ---
Progress Note, Physician History of Present Illness: Feeling better Febrile overnight with chills No c/o dysuria/ hematuria No flank pain - Current Medication List Current Medications: Active Medications Acetaminophen (Tylenol -) 650 mg PO Q4H PRN PRN Reason: FEVER OR PAIN Last Admin: 06/11/17 03:29 Dose: 650 mg Heparin Sodium (Porcine) (Heparin -) 5,000 unit SQ TID VANDANA Last Admin: 06/11/17 06:29 Dose: 5,000 unit Sodium Chloride (Normal Saline -) 1,000 mls @ 200 mls/hr IV ASDIR VANDANA Last Admin: 06/11/17 11:38 Dose: 200 mls/hr Piperacillin Sod/Tazobactam (Sod 4.5 gm/ Dextrose) 100 mls @ 200 mls/hr IVPB Q8H-IV VANDANA PRN Reason: Protocol Last Admin: 06/11/17 10:04 Dose: 200 mls/hr Insulin Aspart (Novolog Vial Sliding Scale -) 1 vial SQ ACHS VANDANA PRN Reason: Protocol Last Admin: 06/11/17 11:39 Dose: 2 units - Objective Vital Signs: Vital Signs Temperature 98.6 F 06/11/17 08:00 Pulse Rate 88 06/11/17 08:00 Respiratory Rate 88 H 06/11/17 08:00 Blood Pressure 134/77 06/11/17 08:00 O2 Sat by Pulse Oximetry (%) 97 06/10/17 21:00 Constitutional: Yes: No Distress Eyes: Yes: Conjunctiva Clear Cardiovascular: Yes: Regular Rate and Rhythm, S1, S2 Respiratory: Yes: CTA Bilaterally Genitourinary: Yes: CVA Tenderness - Right, Other (+ PCN R flank Urine in collection bag clear) Labs: CBC, BMP 06/11/17 07:00 06/11/17 07:00 INR, PTT INR 1.18 (0.82-1.09) H 06/09/17 19:59 Assessment/Plan Staghorn calculus/ HN/ Pyelonephritis S/P R PCN Recurrent UTI Lactic acidosis- resolved Await c/s Continue zosyn
--- NOTE | 2017-06-11 14:32 | PN ---
Physical Exam: SUBJECTIVE: Patient seen and examined. No acute events overnight. Denies subjective fevers, chills, SOB, chest pain, n/ v/d/c, dysuria, urgency, and frequency. OBJECTIVE: Vital Signs Period Temp Pulse Resp BP Sys/Peryr Pulse Ox Last 24 Hr 98.6 F-102.1 F 81-101 16-88 134-144/71-78 97 GENERAL: The patient is awake, alert, and fully oriented, in no acute distress. HEAD: Normal with no signs of trauma. EYES: PERRL, extraocular movements intact, sclera anicteric, conjunctiva clear. No ptosis. ENT: Ears normal, nares patent, oropharynx clear without exudates, moist mucous membranes. NECK: Trachea midline, full range of motion, supple. LUNGS: Breath sounds equal, clear to auscultation bilaterally, no wheezes, no crackles, no accessory muscle use. HEART: Regular rate and rhythm, S1, S2 without murmur, rub or gallop. ABDOMEN: Soft, nontender, nondistended, normoactive bowel sounds, no guarding, no rebound, no hepatosplenomegaly, no masses. Back: bandage overlying right flank, nephrostomy tube draining clear/yellow urine, so signs of infection around it EXTREMITIES: 2+ pulses, warm, well-perfused, no edema. NEUROLOGICAL: Cranial nerves II through XII grossly intact. Normal speech, gait not observed. PSYCH: Normal mood, normal affect. SKIN: Warm, dry, normal turgor, no rashes or lesions noted Laboratory Results - last 24 hr 06/10/17 06/10/17 06/11/17 17:38 23:13 06:10 WBC RBC Hgb Hct MCV MCH MCHC RDW Plt Count MPV Neutrophils % Lymphocytes % Monocytes % Eosinophils % Basophils % Sodium Potassium Chloride Carbon Dioxide Anion Gap BUN Creatinine POC Glucometer 172 217 162 Random Glucose Calcium Phosphorus Magnesium 06/11/17 06/11/17 06/11/17 07:00 07:00 11:26 WBC 12.1 H RBC 3.85 Hgb 11.1 D Hct 33.5 MCV 87.0 MCH 28.8 MCHC 33.1 RDW 12.9 Plt Count 247 MPV 8.4 Neutrophils % 59.9 D Lymphocytes % 24.7 D Monocytes % 14.9 H Eosinophils % 0.2 D Basophils % 0.3 Sodium 137 Potassium 3.9 Chloride 106 Carbon Dioxide 23 Anion Gap 8 BUN 9 D Creatinine 0.6 POC Glucometer 159 Random Glucose 143 H Calcium 7.8 L Phosphorus 1.5 L D Magnesium 2.0 Active Medications Generic Name Dose Route Start Last Admin Trade Name Freq PRN Reason Stop Dose Admin Acetaminophen 650 mg 06/10/17 07:53 06/11/17 03:29 Tylenol - PO 650 mg Q4H PRN Administration FEVER OR PAIN Heparin Sodium (Porcine) 5,000 unit 06/10/17 08:00 06/11/17 06:29 Heparin - SQ 5,000 unit TID VANDANA Administration Sodium Chloride 1,000 mls @ 200 mls/hr 06/09/17 20:30 06/11/17 11:38 Normal Saline - IV 200 mls/hr ASDIR VANDANA Administration Piperacillin Sod/Tazobactam 100 mls @ 200 mls/hr 06/10/17 16:00 06/11/17 10:04 Sod 4.5 gm/ Dextrose IVPB 200 mls/hr Q8H-IV VANDANA Administration Protocol Insulin Aspart 1 vial 06/09/17 22:00 06/11/17 11:39 Novolog Vial Sliding Scale - SQ 2 units ACHS VANDANA Administration Protocol ASSESSMENT/PLAN: 37F w/ hx of recurrent UTIs, remote h/o nephrolithiasis, and DMT2 presenting with right flank pain, fevers, increased dysuria, and urinary urgency, with an exam notable for fever and tachycardia, found to have a leukocytosis, lactic acidosis, a UA with 626 wbcs, and a large right staghorn calculus with right hydronephrosis on imaging, admitted for nephrolithiasis and pyelonephritis, s/p right nephrostomy tube. #severe sepsis- 2/2 pyelonephritis -ID on board- Dr. Guthrie, recs appreciated -Tylenol PRN -continue zosyn -trend lactate -wbc of 12, down from 16.9, continue trending -Tmax of 102.1 since yesterday -blood cx: NTD -urine cx: non-lactose fermenting GNB, f/u final result and sensitivities #nephrolithiasis s/p right nephrostomy tube -urology on board- Dr. Queen, rectoni appreciated. Stone burden to be decreased after infection resolves. -nephrostomy draining clear/yellow urine #DM -SSI -bgm ACHS #FEN/PPx -NS at 200 -wnl -diabetic diet -no GI ppx indicated -heparin 5000U TID Rosales Vila MD PGY1 Visit type - Emergency Visit Emergency Visit: Yes ED Registration Date: 06/09/17 Care time: The patient presented to the Emergency Department on the above date and was hospitalized for further evaluation of their emergent condition. - New Patient This patient is new to me today: No - Critical Care Critical Care patient: No
--- NOTE | 2017-06-11 21:32 | PN ---
Teaching Attending Note Name of Resident: Rosales Vila ATTENDING PHYSICIAN STATEMENT I saw and evaluated the patient. I reviewed the resident's note and discussed the case with the resident. I agree with the resident's findings and plan as documented. SUBJECTIVE: Patient is feeling today , continues to have fever. OBJECTIVE: Vital Signs Temperature 100.8 F H 06/11/17 20:05 Pulse Rate 82 06/11/17 20:05 Respiratory Rate 18 06/11/17 20:05 Blood Pressure 145/80 06/11/17 20:05 O2 Sat by Pulse Oximetry (%) 99 06/11/17 09:00 CBCD WBC 12.1 K/mm3 (4.0-10.0) H 06/11/17 07:00 RBC 3.85 M/mm3 (3.60-5.2) 06/11/17 07:00 Hgb 11.1 GM/dL (10.7-15.3) D 06/11/17 07:00 Hct 33.5 % (32.4-45.2) 06/11/17 07:00 MCV 87.0 fl (80-96) 06/11/17 07:00 MCHC 33.1 g/dl (32.0-36.0) 06/11/17 07:00 RDW 12.9 % (11.6-15.6) 06/11/17 07:00 Plt Count 247 K/MM3 (134-434) 06/11/17 07:00 MPV 8.4 fl (7.5-11.1) 06/11/17 07:00 CMP Sodium 137 mmol/L (136-145) 06/11/17 07:00 Potassium 3.9 mmol/L (3.5-5.1) 06/11/17 07:00 Chloride 106 mmol/L (98-107) 06/11/17 07:00 Carbon Dioxide 23 mmol/L (21-32) 06/11/17 07:00 Anion Gap 8 (8-16) 06/11/17 07:00 BUN 9 mg/dL (7-18) D 06/11/17 07:00 Creatinine 0.6 mg/dL (0.55-1.02) 06/11/17 07:00 Creat Clearance w eGFR > 60 (>60) 06/10/17 06:45 Random Glucose 143 mg/dL (74-106) H 06/11/17 07:00 Calcium 7.8 mg/dL (8.5-10.1) L 06/11/17 07:00 Total Bilirubin 0.5 mg/dL (0.2-1.0) 06/10/17 06:45 AST 13 U/L (15-37) L D 06/10/17 06:45 ALT 15 U/L (12-78) 06/10/17 06:45 Alkaline Phosphatase 75 U/L (45-117) 06/10/17 06:45 Total Protein 6.7 g/dl (6.4-8.2) 06/10/17 06:45 Albumin 2.7 g/dl (3.4-5.0) L D 06/10/17 06:45 Current Medications Generic Name Dose Route Start Last Admin Trade Name Freq PRN Reason Stop Dose Admin Acetaminophen 650 mg 06/10/17 07:53 06/11/17 15:02 Tylenol - PO 650 mg Q4H PRN Administration FEVER OR PAIN Heparin Sodium (Porcine) 5,000 unit 06/10/17 08:00 06/11/17 14:32 Heparin - SQ 5,000 unit TID VANDANA Administration Sodium Chloride 1,000 mls @ 200 mls/hr 06/09/17 20:30 06/11/17 16:58 Normal Saline - IV 200 mls/hr ASDIR VANDANA Administration Piperacillin Sod/Tazobactam 100 mls @ 200 mls/hr 06/10/17 16:00 06/11/17 18:05 Sod 4.5 gm/ Dextrose IVPB 200 mls/hr Q8H-IV VANDANA Administration Protocol Insulin Aspart 1 vial 06/09/17 22:00 06/11/17 18:04 Novolog Vial Sliding Scale - SQ Not Given ACHS VANDANA Protocol Home Medications Medication Instructions Recorded Canagliflozin/Metformin HCl 1 each PO BID 06/09/17 [Invokamet Xr 50-1,000 mg Tab] PE: per resident's note. Microbiology 06/09/17 17:30 Blood - Peripheral Venous Blood Culture - Preliminary NO GROWTH OBTAINED AFTER 72 HOURS, INCUBATION TO CONTINUE FOR 2 DAYS. 06/09/17 17:30 Blood - Peripheral Venous Blood Culture - Preliminary NO GROWTH OBTAINED AFTER 72 HOURS, INCUBATION TO CONTINUE FOR 2 DAYS. 06/09/17 11:11 Urine - Urine Clean Catch Urine Culture - Final Proteus Mirabilis sensitive to zosyn ASSESSMENT AND PLAN: CT abd/pelvis: large right staghorn calculus with right hydronephrosis around 2.8cmx1.6x2.9cm ASSESSMENT AND PLAN: Patient is a 37F w/ hx of recurrent UTIs, with h/o nephrolithiasis, and T2DM presented with right flank pain, fevers, increased dysuria, and urinary urgency , # Acute sepsis due to UTI due to right kidney stone staghorn calculi with right hydronephrosis; Dr hamlin on board s/p nephrostomy tube draining well. Purine culture positive for Proteus Mirabilis senssitive to Zosyn IV . ID, on the case and Urologist on the case s/p Rocephin given in ED. #Nephrolithiasis s/p right nephrostomy tube by urologist ;Dr. Hamlin. Once patient is stable will go for Lithotripsy #DM : Sliding scale with coverage. Hold metformin DVT px; Heparin
[2017-06-12] MEDS ORDERED: PIPERACILLIN/TAZOBACTAM 4.5 GM VIAL IVPB ONE ×4 (00:21→23:07)
[2017-06-12] MEDS ORDERED: DEXTROSE 5%-WATER 100 ML IVPB ONE ×4 (00:22→23:07)
[2017-06-12] MEDS: PIPERACILLIN/TAZOB 4.5 GM 4.5 GM in DEXTROSE 5%-WATER 100 ML IVPB SCH ×3 (01:17→17:01)
[2017-06-12] MEDS: ACETAMINOPHEN 325 MG TABLET (FP) PO PRN ×2 (02:11→21:33)
[2017-06-12] MEDS: SODIUM CHLORIDE 1,000 ML IV SCH ×3 (02:13→23:50)
[2017-06-12] MEDS: HEPARIN NA (PORCINE) 5,000 UNITS/ML 1ML VIAL SQ SCH ×3 (05:32→21:32)
[2017-06-12] MEDS: INSULIN SLIDING SCALE (NOVOLOG) 1 VIAL SQ SCH ×4 (06:00→22:32)
[2017-06-12 08:17] LABS: BASOPHIL 0.7 % (0-2.0); EOSINOPHIL 1.1 % (0-4.5); MCH 29.1 pg (25.7-33.7); MCHC 33.5 g/dl (32.0-36.0); MEAN CELL VOLUME 86.8 fl (80-96); MEAN PLT VOLUME 8.8 fl (7.5-11.1); NEUTROPHILS 49.6 % (42.8-82.8); PLATELET COUNT 257 K/MM3 (134-434); RDW 12.6 % (11.6-15.6); WHITE BLOOD COUNT 8.8 K/mm3 (4.0-10.0)
--- NOTE | 2017-06-12 08:58 | PN ---
Progress Note, Physician History of Present Illness: No c/o flank pain, dysuria/ hematuria Looks well but still febrile (102.7 yesterday afternoon) BC no growth Urine c/s NLF WBC now normal - Current Medication List Current Medications: Active Medications Acetaminophen (Tylenol -) 650 mg PO Q4H PRN PRN Reason: FEVER OR PAIN Last Admin: 06/12/17 02:11 Dose: 650 mg Heparin Sodium (Porcine) (Heparin -) 5,000 unit SQ TID VANDANA Last Admin: 06/12/17 05:32 Dose: 5,000 unit Sodium Chloride (Normal Saline -) 1,000 mls @ 200 mls/hr IV ASDIR VANDANA Last Admin: 06/12/17 02:13 Dose: Not Given Piperacillin Sod/Tazobactam (Sod 4.5 gm/ Dextrose) 100 mls @ 200 mls/hr IVPB Q8H-IV VANDANA PRN Reason: Protocol Last Admin: 06/12/17 01:17 Dose: 200 mls/hr Insulin Aspart (Novolog Vial Sliding Scale -) 1 vial SQ ACHS VANDANA PRN Reason: Protocol Last Admin: 06/12/17 06:00 Dose: Not Given - Objective Vital Signs: Vital Signs Temperature 98.4 F 06/12/17 06:00 Pulse Rate 67 06/12/17 06:00 Respiratory Rate 18 06/12/17 06:00 Blood Pressure 128/67 06/12/17 06:00 O2 Sat by Pulse Oximetry (%) 99 06/11/17 21:00 Constitutional: Yes: No Distress Eyes: Yes: Conjunctiva Clear Cardiovascular: Yes: Regular Rate and Rhythm, S1, S2 Respiratory: Yes: CTA Bilaterally Gastrointestinal: Yes: Normal Bowel Sounds, Soft. No: Tenderness Genitourinary: Yes: Other (+ PCN R flank with clear urine in bag). No: CVA Tenderness - Right Labs: CBC, BMP 06/12/17 07:00 06/11/17 07:00 INR, PTT INR 1.18 (0.82-1.09) H 06/09/17 19:59 Assessment/Plan Staghorn calculus/ HN/ Pyelonephritis Continued fever S/P R PCN Recurrent UTI Lactic acidosis- resolved Await urine c/s Continue zosyn pending final c/s
[2017-06-12 09:05] LABS: ANION GAP 6 (8-16); CALCIUM 7.9 mg/dL (8.5-10.1); CO2 26 mmol/L (21-32); CREATININE 0.6 mg/dL (0.55-1.02); GLUCOSE,RANDOM 156 mg/dL (74-106)
--- NOTE | 2017-06-12 10:16 | PN ---
Progress Note (short form) - Note Progress Note: feels better NT draining yellow urine temperature curve slowly improving abx as per ID Problem List - Problems (1) Staghorn calculus Code(s): N20.0 - CALCULUS OF KIDNEY
[2017-06-12] MEDS ORDERED: INSULIN (NOVOLOG) ASPART 100 UNITS/ML 10ML VIAL ONE (12:00)
--- NOTE | 2017-06-12 21:23 | PN ---
Physical Exam: SUBJECTIVE: Patient seen and examined Comfortable no acute distress, no fever today. OBJECTIVE: Vital Signs Temperature 99.4 F 06/12/17 18:00 Pulse Rate 86 06/12/17 18:00 Respiratory Rate 20 06/12/17 18:00 Blood Pressure 135/105 06/12/17 18:00 O2 Sat by Pulse Oximetry (%) 100 06/12/17 09:00 GENERAL: The patient is awake, alert, and fully oriented, in no acute distress. HEAD: Normal with no signs of trauma. EYES: PERRL, extraocular movements intact, sclera anicteric, conjunctiva clear. No ptosis. ENT: Ears normal, nares patent, oropharynx clear without exudates, moist mucous membranes. NECK: Trachea midline, full range of motion, supple. LUNGS: Breath sounds equal, clear to auscultation bilaterally, no wheezes, no crackles, no accessory muscle use. HEART: Regular rate and rhythm, S1, S2 without murmur, rub or gallop. ABDOMEN: Soft, nontender, nondistended, normoactive bowel sounds, Right nephrostomy tube EXTREMITIES: 2+ pulses, warm, well-perfused, no edema. NEUROLOGICAL: Cranial nerves II through XII grossly intact. Normal speech, gait not observed. PSYCH: Normal mood, normal affect. SKIN: Warm, dry, normal turgor, no rashes or lesions noted CBCD WBC 8.8 K/mm3 (4.0-10.0) 06/12/17 07:00 RBC 3.58 M/mm3 (3.60-5.2) L 06/12/17 07:00 Hgb 10.4 GM/dL (10.7-15.3) L 06/12/17 07:00 Hct 31.1 % (32.4-45.2) L 06/12/17 07:00 MCV 86.8 fl (80-96) 06/12/17 07:00 MCHC 33.5 g/dl (32.0-36.0) 06/12/17 07:00 RDW 12.6 % (11.6-15.6) 06/12/17 07:00 Plt Count 257 K/MM3 (134-434) 06/12/17 07:00 MPV 8.8 fl (7.5-11.1) 06/12/17 07:00 CMP Sodium 139 mmol/L (136-145) 06/12/17 08:50 Potassium 3.8 mmol/L (3.5-5.1) 06/12/17 08:50 Chloride 107 mmol/L (98-107) 06/12/17 08:50 Carbon Dioxide 26 mmol/L (21-32) 06/12/17 08:50 Anion Gap 6 (8-16) L 06/12/17 08:50 BUN 6 mg/dL (7-18) L D 06/12/17 08:50 Creatinine 0.6 mg/dL (0.55-1.02) 06/12/17 08:50 Creat Clearance w eGFR > 60 (>60) 06/10/17 06:45 Random Glucose 156 mg/dL (74-106) H 06/12/17 08:50 Calcium 7.9 mg/dL (8.5-10.1) L 06/12/17 08:50 Total Bilirubin 0.5 mg/dL (0.2-1.0) 06/10/17 06:45 AST 13 U/L (15-37) L D 06/10/17 06:45 ALT 15 U/L (12-78) 06/10/17 06:45 Alkaline Phosphatase 75 U/L (45-117) 06/10/17 06:45 Total Protein 6.7 g/dl (6.4-8.2) 06/10/17 06:45 Albumin 2.7 g/dl (3.4-5.0) L D 06/10/17 06:45 Active Medications Generic Name Dose Route Start Last Admin Trade Name Joanie PRN Reason Stop Dose Admin Acetaminophen 650 mg 06/12/17 13:20 Tylenol - PO Q6H PRN FEVER OR PAIN Heparin Sodium (Porcine) 5,000 unit 06/10/17 08:00 06/12/17 14:08 Heparin - SQ 5,000 unit TID VANDANA Administration Piperacillin Sod/Tazobactam 100 mls @ 200 mls/hr 06/10/17 16:00 06/12/17 17:01 Sod 4.5 gm/ Dextrose IVPB 200 mls/hr Q8H-IV VANDANA Administration Protocol Sodium Chloride 1,000 mls @ 150 mls/hr 06/12/17 13:18 06/12/17 14:08 Normal Saline - IV 150 mls/hr ASDIR VANDANA Administration Insulin Aspart 1 vial 06/09/17 22:00 06/12/17 17:18 Novolog Vial Sliding Scale - SQ 4 units ACHS VANDANA Administration Protocol Home Medications Medication Instructions Recorded Canagliflozin/Metformin HCl 1 each PO BID 06/09/17 [Invokamet Xr 50-1,000 mg Tab] ASSESSMENT/PLAN: 06/09/17 17:30 Blood - Peripheral Venous Blood Culture - Preliminary NO GROWTH OBTAINED AFTER 72 HOURS, INCUBATION TO CONTINUE FOR 2 DAYS. 06/09/17 17:30 Blood - Peripheral Venous Blood Culture - Preliminary NO GROWTH OBTAINED AFTER 72 HOURS, INCUBATION TO CONTINUE FOR 2 DAYS. 06/09/17 11:11 Urine - Urine Clean Catch Urine Culture - Final Proteus Mirabilis sensitive to zosyn ASSESSMENT AND PLAN: CT abd/pelvis: large right staghorn calculus with right hydronephrosis around 2.8cmx1.6x2.9cm ASSESSMENT AND PLAN: Patient is a 37F w/ hx of recurrent UTIs, with h/o nephrolithiasis, and T2DM presented with right flank pain, fevers, increased dysuria, and urinary urgency , # Acute sepsis due to UTI /pylinephritis due to right kidney stone staghorn calculi with right hydronephrosis; Dr hamlin on board s/p nephrostomy tube draining well. Purine culture positive for Proteus Mirabilis senssitive to Zosyn IV . seen by DR. ken today and Urologist on the case s/p Rocephin given in ED. #Nephrolithiasis s/p right nephrostomy tube by urologist ;Dr. Hamlin. Once patient is stable will go for Lithotripsy #DM : Sliding scale with coverage. Hold metformin DVT px; Heparin Visit type - Emergency Visit Emergency Visit: Yes ED Registration Date: 06/09/17 Care time: The patient presented to the Emergency Department on the above date and was hospitalized for further evaluation of their emergent condition. - New Patient This patient is new to me today: No - Critical Care Critical Care patient: No
[2017-06-13] MEDS: PIPERACILLIN/TAZOB 4.5 GM 4.5 GM in DEXTROSE 5%-WATER 100 ML IVPB SCH ×2 (02:43→09:37)
[2017-06-13] MEDS: ACETAMINOPHEN 325 MG TABLET (FP) PO PRN ×2 (05:27→18:49)
[2017-06-13] MEDS: HEPARIN NA (PORCINE) 5,000 UNITS/ML 1ML VIAL SQ SCH ×3 (05:28→21:38)
[2017-06-13] MEDS: INSULIN SLIDING SCALE (NOVOLOG) 1 VIAL SQ SCH ×4 (06:22→21:37)
[2017-06-13 08:14] LABS: EOSINOPHIL 1.9 % (0-4.5); MCH 29.2 pg (25.7-33.7); MCHC 33.7 g/dl (32.0-36.0); MEAN CELL VOLUME 86.6 fl (80-96); MEAN PLT VOLUME 8.4 fl (7.5-11.1); NEUTROPHILS 56.4 % (42.8-82.8); PLATELET COUNT 330 K/MM3 (134-434); WHITE BLOOD COUNT 9.4 K/mm3 (4.0-10.0)
[2017-06-13 08:36] LABS: ALBUMIN 2.6 g/dl (3.4-5.0); ANION GAP 5 (8-16); CALCIUM 8.3 mg/dL (8.5-10.1); CO2 27 mmol/L (21-32); CREATININE 0.7 mg/dL (0.55-1.02); GLUCOSE,RANDOM 172 mg/dL (74-106); SGOT/AST 20 U/L (15-37); SGPT/ALT 28 U/L (12-78)
[2017-06-13 08:38] LABS: ALK PHOS 82 U/L (45-117); BILIRUBIN,TOTAL 0.4 mg/dL (0.2-1.0); TOT PROT 7.2 g/dl (6.4-8.2)
[2017-06-13] MEDS ORDERED: PIPERACILLIN/TAZOBACTAM 4.5 GM VIAL IVPB ONE (09:31)
[2017-06-13] MEDS ORDERED: DEXTROSE 5%-WATER 100 ML IVPB ONE ×2 (09:31→17:22)
--- NOTE | 2017-06-13 10:20 | PN ---
Progress Note, Physician Chief Complaint: ID Despite 101 fever she feels better since placement of neprostomy tube Getting Zosyn - Current Medication List Current Medications: Active Medications Acetaminophen (Tylenol -) 650 mg PO Q6H PRN PRN Reason: FEVER OR PAIN Last Admin: 06/13/17 05:27 Dose: 650 mg Heparin Sodium (Porcine) (Heparin -) 5,000 unit SQ TID VANDANA Last Admin: 06/13/17 05:28 Dose: 5,000 unit Piperacillin Sod/Tazobactam (Sod 4.5 gm/ Dextrose) 100 mls @ 200 mls/hr IVPB Q8H-IV VANDANA PRN Reason: Protocol Last Admin: 06/13/17 09:37 Dose: 200 mls/hr Sodium Chloride (Normal Saline -) 1,000 mls @ 150 mls/hr IV ASDIR VANDANA Last Admin: 06/12/17 23:50 Dose: 150 mls/hr Insulin Aspart (Novolog Vial Sliding Scale -) 1 vial SQ ACHS VANDANA PRN Reason: Protocol Last Admin: 06/13/17 06:22 Dose: 2 units - Objective Vital Signs: Vital Signs Temperature 98.1 F 06/13/17 08:49 Pulse Rate 79 06/13/17 08:49 Respiratory Rate 16 06/13/17 08:49 Blood Pressure 134/75 06/13/17 08:49 O2 Sat by Pulse Oximetry (%) 100 06/12/17 21:00 Constitutional: Yes: Well Nourished, No Distress HENT: Yes: WNL, Atraumatic Neck: Yes: WNL, Supple Cardiovascular: Yes: Regular Rate and Rhythm, S1, S2. No: Murmur Respiratory: Yes: WNL, Regular, CTA Bilaterally Gastrointestinal: Yes: WNL, Normal Bowel Sounds, Soft. No: Tenderness, Tenderness, Epigastrium Genitourinary: Yes: Other (Drainage cath Right) Labs: CBC, BMP 06/13/17 07:30 06/13/17 07:30 INR, PTT INR 1.18 (0.82-1.09) H 06/09/17 19:59 Assessment/Plan Microbiology 06/09/17 11:11 Urine - Urine Clean Catch Urine Culture - Final Proteus Mirabilis 06/09/17 17:30 Blood - Peripheral Venous Blood Culture - Preliminary NO GROWTH OBTAINED AFTER 72 HOURS, INCUBATION TO CONTINUE FOR 2 DAYS. 06/09/17 17:30 Blood - Peripheral Venous Blood Culture - Preliminary NO GROWTH OBTAINED AFTER 72 HOURS, INCUBATION TO CONTINUE FOR 2 DAYS. Laboratory Tests 06/13/17 06/13/17 07:30 07:30 WBC 9.4 RBC 3.69 Hct 32.0 L Plt Count 330 D BUN 5 L Creatinine 0.7 Creat Clearance w eGFR > 60 Assessment Stag horn calculus with nephrostomy tube and Proetus UTI Plan [place] to Ceftriaxone to 2 grs Ceftriaxone for now Saadia ROSADO
--- NOTE | 2017-06-13 11:05 | PN ---
Physical Exam: SUBJECTIVE: Patient seen and examined. No acute events overnight, pt has no complaints, is just anxious to go home. OBJECTIVE: Vital Signs Period Temp Pulse Resp BP Sys/Perry Pulse Ox Last 24 Hr 98.1 F-101.2 F 72-86 16-20 92-143/45-105 100 GENERAL: The patient is awake, alert, and fully oriented, in no acute distress. HEAD: Normal with no signs of trauma. EYES: PERRL, extraocular movements intact, sclera anicteric, conjunctiva clear. No ptosis. ENT: Ears normal, nares patent, oropharynx clear without exudates, moist mucous membranes. NECK: Trachea midline, full range of motion, supple. LUNGS: Breath sounds equal, clear to auscultation bilaterally, no wheezes, no crackles, no accessory muscle use. HEART: Regular rate and rhythm, S1, S2 without murmur, rub or gallop. ABDOMEN: Soft, nontender, nondistended, normoactive bowel sounds, no guarding, no rebound, no hepatosplenomegaly, no masses. Back: No CVA tenderness, bandage overlying right nephrostomy site, no tenderness around site. R nephrostomy tube draining clear/yellow urine. EXTREMITIES: 2+ pulses, warm, well-perfused, no edema. NEUROLOGICAL: Cranial nerves II through XII grossly intact. Normal speech, gait not observed. PSYCH: Normal mood, normal affect. SKIN: Warm, dry, normal turgor, no rashes or lesions noted Laboratory Results - last 24 hr 06/12/17 06/12/17 06/12/17 11:29 16:36 21:49 WBC RBC Hgb Hct MCV MCH MCHC RDW Plt Count MPV Neutrophils % Lymphocytes % Monocytes % Eosinophils % Basophils % Sodium Potassium Chloride Carbon Dioxide Anion Gap BUN Creatinine Creat Clearance w eGFR POC Glucometer 195 228 189 Random Glucose Calcium Total Bilirubin AST ALT Alkaline Phosphatase Total Protein Albumin 06/13/17 06/13/17 06/13/17 06:17 07:30 07:30 WBC 9.4 RBC 3.69 Hgb 10.8 Hct 32.0 L MCV 86.6 MCH 29.2 MCHC 33.7 RDW 13.0 Plt Count 330 D MPV 8.4 Neutrophils % 56.4 Lymphocytes % 28.5 Monocytes % 12.2 H Eosinophils % 1.9 Basophils % 1.0 Sodium 135 L Potassium 3.6 Chloride 103 Carbon Dioxide 27 Anion Gap 5 L BUN 5 L Creatinine 0.7 Creat Clearance w eGFR > 60 POC Glucometer 180 Random Glucose 172 H Calcium 8.3 L Total Bilirubin 0.4 AST 20 D ALT 28 D Alkaline Phosphatase 82 Total Protein 7.2 Albumin 2.6 L Active Medications Generic Name Dose Route Start Last Admin Trade Name Freq PRN Reason Stop Dose Admin Acetaminophen 650 mg 06/12/17 13:20 06/13/17 05:27 Tylenol - PO 650 mg Q6H PRN Administration FEVER OR PAIN Heparin Sodium (Porcine) 5,000 unit 06/10/17 08:00 06/13/17 05:28 Heparin - SQ 5,000 unit TID VANDANA Administration Sodium Chloride 1,000 mls @ 150 mls/hr 06/12/17 13:18 06/12/17 23:50 Normal Saline - IV 150 mls/hr ASDIR VANDANA Administration Ceftriaxone Sodium 2 gm/ 100 mls @ 200 mls/hr 06/13/17 17:30 Dextrose IVPB DAILY VANDANA Insulin Aspart 1 vial 06/09/17 22:00 06/13/17 06:22 Novolog Vial Sliding Scale - SQ 2 units ACHS VANDANA Administration Protocol ASSESSMENT/PLAN: 37F w/ hx of recurrent UTIs, remote h/o nephrolithiasis, and DMT2 presenting with right flank pain, fevers, increased dysuria, and urinary urgency, with an exam notable for fever and tachycardia, found to have a leukocytosis, lactic acidosis, a UA with 626 wbcs, and a large right staghorn calculus with right hydronephrosis on imaging, admitted for nephrolithiasis and pyelonephritis, s/p right nephrostomy tube. #severe sepsis- 2/2 pyelonephritis -pt spiked one fever of 101.2 overnight -ID on board- Dr. Guthrie, recs appreciated -Urine cx: grew proteus mirabilis w/ 60,000-70,000 CFU -abx per ID: changed from zosyn to ceftriaxone 2g qd -Tylenol PRN -wbc of 9.4, trending down, continue trending -blood cx: NTD -pt on conagliflozin/metformin BID at home, will discontinue due to recurrent UTI. -F/U A1c #nephrolithiasis s/p right nephrostomy tube -urology on board- Dr. Queen, recs appreciated. Stone burden to be decreased after infection resolves. -nephrostomy draining clear/yellow urine #DM -SSI -bgm ACHS #FEN/PPx -NS at 150 -wnl -diabetic diet -no GI ppx indicated -heparin 5000U TID #Dispo -D/C conagliflozin/metformin on discharge, switch to different hypoglycemic Rosales Vila MD PGY1 Visit type - Emergency Visit Emergency Visit: Yes ED Registration Date: 06/09/17 Care time: The patient presented to the Emergency Department on the above date and was hospitalized for further evaluation of their emergent condition. - New Patient This patient is new to me today: No - Critical Care Critical Care patient: No
[2017-06-13] MEDS ORDERED: INSULIN (NOVOLOG) ASPART 100 UNITS/ML 10ML VIAL ONE (12:01)
[2017-06-13] MEDS: SODIUM CHLORIDE 1,000 ML IV SCH (12:34)
--- NOTE | 2017-06-13 13:56 | PN ---
Teaching Attending Note Name of Resident: Rosales Vila ATTENDING PHYSICIAN STATEMENT I saw and evaluated the patient. I reviewed the resident's note and discussed the case with the resident. I agree with the resident's findings and plan as documented. SUBJECTIVE: Patient feels improved minimal flank pain overnight spiked 101.2 OBJECTIVE: Vital Signs Period Temp Pulse Resp BP Sys/Perry Pulse Ox Last 24 Hr 98.1 F-101.2 F 72-86 16-20 92-143/45-105 100 Young F looks comfortable not in distress HEENT: Mm moist no anemia , PERRLA EOMI NECK: No JVD No Bruit CHEST: CTA B/L CVS: S1S2 r no m/g/r ABD: non tender , soft BS + EXT: No edema, Pulses +, No Calf tenderness Rt sided Nephrostomy tubes AUTHOR AGENT: AOx3 Non focal LABS: CBC, BMP 06/13/17 07:30 06/13/17 07:30 Microbiology 06/09/17 11:11 Urine - Urine Clean Catch Urine Culture - Final Proteus Mirabilis ASSESSMENT AND PLAN: 37 yrs old F H/O T2DM , non compliant poorly controlled present with Rt Renal colic w/u shows, Hydronephrosis , staghorn calculi, with acute pyelonephritis, U Culture grew Proteus Miriballis Walsh-sensitive ID recommended Ceftroiaxon 2 gm IV Daily. Rt sided complicated acute Pyelonephritis with Hydronephrosis nad stag horn Calculi s/p Nephrostomy tube: Plan cont Ceftrixone Uncontrolled T2DM; Patient is invokana at home considering please dont prescribe Invokan aon DC F/U HbA1C to optimize out patient Glycemic control.
[2017-06-13] MEDS: CEFTRIAXONE 2 GM in DEXTROSE 5%-WATER 100 ML IVPB SCH (17:29)
[2017-06-14] MEDS: HEPARIN NA (PORCINE) 5,000 UNITS/ML 1ML VIAL SQ SCH ×2 (06:26→14:30)
[2017-06-14] MEDS: INSULIN SLIDING SCALE (NOVOLOG) 1 VIAL SQ SCH ×2 (06:27→12:46)
[2017-06-14 07:25] LABS: BASOPHIL 0.5 % (0-2.0); EOSINOPHIL 2.5 % (0-4.5); MCH 28.8 pg (25.7-33.7); MCHC 33.4 g/dl (32.0-36.0); MEAN CELL VOLUME 86.3 fl (80-96); MEAN PLT VOLUME 7.9 fl (7.5-11.1); NEUTROPHILS 52.7 % (42.8-82.8); PLATELET COUNT 351 K/MM3 (134-434); WHITE BLOOD COUNT 9.8 K/mm3 (4.0-10.0)
[2017-06-14 08:02] LABS: ANION GAP 5 (8-16); CALCIUM 8.4 mg/dL (8.5-10.1); CO2 27 mmol/L (21-32); CREATININE 0.6 mg/dL (0.55-1.02); GLUCOSE,RANDOM 178 mg/dL (74-106)
[2017-06-14] MEDS: SODIUM CHLORIDE 1,000 ML IV SCH ×2 (09:14→15:40)
[2017-06-14] MEDS ORDERED: DEXTROSE 5%-WATER 100 ML IVPB ONE (09:37)
[2017-06-14] MEDS: CEFTRIAXONE 2 GM in DEXTROSE 5%-WATER 100 ML IVPB SCH (09:42)
[2017-06-14] MEDS ORDERED: INSULIN (NOVOLOG) ASPART 100 UNITS/ML 10ML VIAL ONE (12:42)
[2017-06-14 13:48] VITALS: BP 139/76; PULSE 82
[2017-06-14] MEDS ORDERED: LISINOPRIL 10 MG TABLET (FP) PO SCH (14:30)
--- NOTE | 2017-06-14 15:18 | PN ---
Progress Note, Physician History of Present Illness: No complaints No suprapubic or flank pain No dysuria/ hematuria Low grade temp noted - Current Medication List Current Medications: Active Medications Acetaminophen (Tylenol -) 650 mg PO Q6H PRN PRN Reason: FEVER OR PAIN Last Admin: 06/13/17 18:49 Dose: 650 mg Heparin Sodium (Porcine) (Heparin -) 5,000 unit SQ TID [facility] Last Admin: 06/14/17 06:26 Dose: Not Given Sodium Chloride (Normal Saline -) 1,000 mls @ 150 mls/hr IV ASDIR [facility] Last Admin: 06/14/17 09:14 Dose: 150 mls/hr Ceftriaxone Sodium 2 gm/ (Dextrose) 100 mls @ 200 mls/hr IVPB DAILY [facility] Last Admin: 06/14/17 09:42 Dose: 200 mls/hr Insulin Aspart (Novolog Vial Sliding Scale -) 1 vial SQ ACHS [facility] PRN Reason: Protocol Last Admin: 06/14/17 12:46 Dose: 4 units Lisinopril (Prinivil) 10 mg PO DAILY [facility] - Objective Vital Signs: Vital Signs Temperature 99.4 F 06/14/17 06:00 Pulse Rate 82 06/14/17 13:47 Respiratory Rate 18 06/14/17 06:00 Blood Pressure 139/76 06/14/17 13:47 O2 Sat by Pulse Oximetry (%) 96 06/13/17 21:00 Constitutional: Yes: No Distress Eyes: Yes: Conjunctiva Clear Cardiovascular: Yes: Regular Rate and Rhythm, S1, S2 Respiratory: Yes: CTA Bilaterally Gastrointestinal: Yes: Normal Bowel Sounds, Soft, Other (PCN R flank). No: Tenderness Edema: No Labs: CBC, BMP 06/14/17 06:00 06/14/17 06:00 INR, PTT INR 1.18 (0.82-1.09) H 06/09/17 19:59 Assessment/Plan Staghorn calculus/ HN/ Pyelonephritis S/P R PCN Recurrent UTI Lactic acidosis- resolved May substitute levaquin 750mg po daily x 10d Outpatient follow up
[2017-06-14 15:48] VITALS: TEMP 99.6
--- NOTE | 2017-06-14 16:41 | PN ---
Teaching Attending Note Name of Resident: Rosales Vila ATTENDING PHYSICIAN STATEMENT I saw and evaluated the patient. I reviewed the resident's note and discussed the case with the resident. I agree with the resident's findings and plan as documented. SUBJECTIVE:asymptomatic. denies CP, SOB< fever, chills, N/V/C?D, abdominal pain OBJECTIVE: Last Vital Signs Temp Pulse Resp BP Pulse Ox 99.6 F 82 20 139/76 96 06/14/17 15:48 06/14/17 13:47 06/14/17 10:00 06/14/17 13:47 06/14/17 09:00 General NAD CV S1 S2 RRR no murmur/rub/gallop Lungs CTA B/L no wheezing/rales/rhonchi Abdomen soft NT/ND R nephrostomy with serosangenous fluid ASSESSMENT AND PLAN: 37yo F wtih PMH DM presented with R flank pain and fevers found to have staghorn calculi with sepsis due to pyleonpheritis 1. Sepsis due to pyelonephritis and staghorn calculi- clinically improved. Ucx with barnes sensitive Proteus. on Ceftriaxone which ID evaluated today and said she can be transitiioned to levaquin 750mg daily for 10 days. Urology will evaluate pt once abx course is completed and evacuate stone and remove nephrostomy tube. encouraged pt to take lactobacillus while on abx therapy 2. Elevated BP- remains above goal. claims she has no pain. will start lisinopril 5mg daily 3. DM- A1c 8.5. she states last A1c was 6.something. advised to stop taking ivokana as this increases risks for UTI. will d/c on metformin 1g BID and she has appt with DR Alvarez on wednesday to discuss alternative medication to improve glucose control. educated on need for tight glucose control. verbalized understanding and agreed to f/u and comply with medications 4. d/c home with levaquin x 10 days with neprhostomy tube in place. verbalized plan and need for medication compliance and follow up. verbalized understanding and agreement to plan. all questions answered.
--- NOTE | 2017-06-14 20:16 | DS ---
Physical Exam: SUBJECTIVE: Patient seen and examined. No acute events overnight. Pt denies SOB, chest pain, n/v/d/c, dysuria, urgency , frequency, or leg pain. Pt is just anxious to go home. OBJECTIVE: Vital Signs Period Temp Pulse Resp BP Sys/Perry Pulse Ox Last 24 Hr 98.2 F-99.6 F 76-82 18-20 138-149/75-97 96-96 PHYSICAL EXAM GENERAL: The patient is awake, alert, and fully oriented, in no acute distress. HEAD: Normal with no signs of trauma. EYES: PERRL, extraocular movements intact, sclera anicteric, conjunctiva clear. ENT: Ears normal, nares patent, oropharynx clear without exudates, moist mucous membranes. NECK: Trachea midline, full range of motion, supple. LUNGS: Breath sounds equal, clear to auscultation bilaterally, no wheezes, no crackles, no accessory muscle use. HEART: Regular rate and rhythm, S1, S2 without murmur, rub or gallop. ABDOMEN: Soft, nontender, nondistended, normoactive bowel sounds, no guarding, no rebound, no hepatosplenomegaly, no masses. Back: bandage overlying nephrostomy tube on right side, no signs of infection around it, no tenderness. nephrostomy tube draining clear/yellow urine. EXTREMITIES: 2+ pulses, warm, well-perfused, no edema. NEUROLOGICAL: Cranial nerves II through XII grossly intact. Normal speech, gait not observed. PSYCH: Normal mood, normal affect. SKIN: Warm, dry, normal turgor, no rashes or lesions noted. LABS Laboratory Results - last 24 hr 06/13/17 06/13/17 06/14/17 21:36 21:41 06:00 WBC 9.8 RBC 3.75 Hgb 10.8 Hct 32.4 MCV 86.3 MCH 28.8 MCHC 33.4 RDW 13.0 Plt Count 351 MPV 7.9 Neutrophils % 52.7 Lymphocytes % 32.7 Monocytes % 11.6 H Eosinophils % 2.5 Basophils % 0.5 Sodium Potassium Chloride Carbon Dioxide Anion Gap BUN Creatinine POC Glucometer 193 162 Random Glucose Calcium 06/14/17 06/14/17 06/14/17 06:00 06:26 11:02 WBC RBC Hgb Hct MCV MCH MCHC RDW Plt Count MPV Neutrophils % Lymphocytes % Monocytes % Eosinophils % Basophils % Sodium 137 Potassium 4.0 Chloride 105 Carbon Dioxide 27 Anion Gap 5 L BUN 4 L Creatinine 0.6 POC Glucometer 183 211 Random Glucose 178 H Calcium 8.4 L UA: [address]: large right staghorn calculus measuring 2.8 x 1.6 x 2.9 cm with severe hydronephrosis, possible pyelonephritis, hepatomegaly, and hepatic steatosis. HOSPITAL COURSE: Date of Admission:06/09/17 Date of Discharge: 06/14/17 37F w/ hx of recurrent UTIs, nephrolithiasis, and DM2 who presented with right flank pain, fevers, and UTI sxs, found to have fever, tachycardia, right CVA tenderness, leukocytosis, lactic acidosis, UA with > 600 wbcs, and a CT showing a large right staghorn calculus with hydronephrosis and possible pyelonephritis. She was admitted for nephrolithiasis and pyelonephritis. Urology placed a right nephrostomy tube and stated that they would remove the stone burden once the infection resolved. ID started the pt on zosyn for empiric coverage and switched to ceftriaxone once urine culture (grew proteus mirabilis) and sensitivities came back. Once pt's leukocytosis resolved and she was no longer febrile, she was discharged on levaquin 750mg x 10 days, as per ID. She was instructed to f/u with urology within one week. In the hospital, pt was mildly hypertensive, so she was prescribed lisinopril 5mg qd. Because canagliflozin is contraindicated in pt's with recurrent UTIs, it was discontinued, and pt was sent home on metformin 1000mg BID. Her Hgba1c was 8.5 in the hospital, so consider starting her on another oral hypoglycemic as well. -Rosales Vila MD PGY1 Minutes to complete discharge: 39 Discharge Summary Reason For Visit: STAGHORN CALCULUS,UTI Condition: Stable - Instructions Diet, Activity, Other Instructions: You were found to have a UTI, lactic acidosis, infection of your kidney, and a large kidney stone in the hospital. Urology inserted a nephrostomy tube in your kidney to allow urine to drain. Follow instruction given by the nurse on how to care for your drain. ID started you on IV antibiotics to resolve your kidney infection. Once the infection clears, urology will remove the stone in your kidney. 1. You were prescribed levaquin 750mg to be taken once a day for 10 more days. 2. Follow up with Dr. Queen to remove your stone within one week. 3. Follow up with your PCP within one week. You were started on a medication to control your blood pressure. Take every day. Follow up with your primary care doctor to evaluate if your blood pressure remains controlled on this medication. 4. Follow up with your manager paid on Wednesday. Your diabetes medication was discontinued because it can cause urinary tract infections. We prescribed you metformin 1000mg twice a day. Discuss with your manager paid which other medication you can take to better control your diabetes. Your A1c was 8.5 If you develop any new or worsening symptoms such as high fevers, pain on urination, flank pain, shortness of breath, or chest pain, return to the ED. Referrals: Aiden Shah MD [Primary Care Provider] - 1 Week Andrae Queen MD [Staff Physician] - Blaine Penn MD [Staff Physician] - 1 Week Disposition: HOME - Home Medications Comprehensive Discharge Medication List: Ambulatory Orders Lactobacillus Acidophilus [Acidophilus Probiotic] 0.5 mg PO DAILY #30 tablet 10/30 Levofloxacin [Levaquin] 750 mg PO DAILY #10 tab 06/14/17 Lisinopril 5 mg PO DAILY #30 tablet 06/14/17 Metformin HCl [Metformin HCl ER] 1,000 mg PO BID #60 tab.er.24 06/14/17 This patient is new to me today: No Emergency Visit: Yes ED Registration Date: 06/09/17 Care time: The patient presented to the Emergency Department on the above date and was hospitalized for further evaluation of their emergent condition. Critical Care patient: No - Discharge Referral Referred to [facility] Med [facility].: No
== END 2017-06-14 17:49 | disposition home or self-care (01) | DRG 872 ==
LOC: JER 10:12 → JERBED 15:44 → J5S 18:03
PROVIDERS: ADMIT Internal Medicine; ATTEND Internal Medicine
PROC: 0T9330Z Drainage of Right Kidney Pelvis with Drainage Device, Percutaneous Approach (ICD-10-PCS; principal; 2017-06-09)
PROC: BT11YZZ Fluoroscopy of Right Kidney using Other Contrast (ICD-10-PCS; 2017-06-09)
DX: A41.9 Sepsis, unspecified organism (principal); E87.2 Acidosis; N13.2 Hydronephrosis with renal and ureteral calculous obstruction; N12 Tubulo-interstitial nephritis, not specified as acute or chronic; Z87.440 Personal history of urinary (tract) infections; R65.20 Severe sepsis without septic shock; B96.4 Proteus (mirabilis) (morganii) as the cause of diseases classified elsewhere; E11.65 Type 2 diabetes mellitus with hyperglycemia; Z79.84 Long term (current) use of oral hypoglycemic drugs
CPT/HCPCS: 36415; 71020-TC; 74176-TC; 75984-TC; 76000-TC; 76998-TC; 80048; 80053; 81003; 81015; 83036; 83605; 83735; 84100; 84703; 85025; 85610; 85730; 87040; 87086; 87186; 99284-25; A4358; C1729; C1769; J1644

== ENCOUNTER 2018-01-31 19:49 | Emergency (ER) | payer OTHER ==
--- NOTE | 2018-01-31 19:53 | PDOC ---
Rapid Medical Evaluation Time Seen by Provider: 01/31/18 19:51 Medical Evaluation: Allergies Allergy/AdvReac Type Severity Reaction Status Date / Time No Known Drug Allergies Allergy Verified 01/31/18 19:51 01/31/18 19:51 37 year old female with IDDM, LMP 09/25/2017 (14 wks ) presenting with vaginal bleeding with one large clot today. Denies pain/cramping. Ob is Dr. Lange. Alert, oriented, no distress. V/s unremarkable. -Labs including CBC, bhcg, T&S, UA/culture -TV u/s -To Main ED for further evaluation
[2018-01-31 19:54] VITALS: BP 144/85; PULSE 100; TEMP 97.8; BMI 25.8
--- NOTE | 2018-01-31 20:54 | PDOC ---
History of Present Illness - General Chief Complaint: Vaginal Bleeding Stated Complaint: VAGINAL BLEEDING/14 WKS Time Seen by Provider: 01/31/18 19:51 - History of Present Illness Initial Comments: 01/31/18 21:04 Ms. Kaye is a 37 yo female w/ pmh of IDDM who presents for evaluation of bleeding in earlier today. She denies any associated pain or cramps but endorses a small amount of bleeding consistent with her period when she wiped ealier. She also noted a small marble sized blood clot when she subsequently urinated later. Denies any trauma, denies any nausea, vomiting, or other symptoms. The patient denies chest pain, shortness of breath, headache and dizziness. Denies fever, chills, nausea, vomit, diarrhea and constipation. Denies dysuria, frequency, urgency and hematuria. Allergies: NKDA Past History - Past Medical History Allergies/Adverse Reactions: Allergies Allergy/AdvReac Type Severity Reaction Status Date / Time No Known Drug Allergies Allergy Verified 01/31/18 19:51 Home Medications: Ambulatory Orders Insulin (Novolog) [Novolog] 0 units SQ AC 01/31/18 Asthma: No Cancer: No Cardiac Disorders: No COPD: No Diabetes: Yes HTN: No Kidney Stones: Yes Seizures: No Thyroid Disease: No - Immunization History Immunization Up to Date: Yes - Suicide/Smoking/Psychosocial Hx Smoking History: Never smoked Have you smoked in the past 12 months: No Hx Alcohol Use: No Drug/Substance Use Hx: No Substance Use Type: None Hx Substance Use Treatment: No Review of Systems - Review of Systems Comments:: 01/31/18 21:59 GENERAL/CONSTITUTIONAL: No fever or chills. No weakness. HEAD, EYES, EARS, NOSE AND THROAT: No change in vision. No ear pain or discharge. No sore throat. CARDIOVASCULAR: No chest pain or shortness of breath RESPIRATORY: No cough, wheezing, or hemoptysis. GASTROINTESTINAL: No nausea, vomiting, diarrhea or constipation. GENITOURINARY: +Bleeding as described. No dysuria, frequency, or change in urination. MUSCULOSKELETAL: No joint or muscle swelling or pain. No neck or back pain. SKIN: No rash NEUROLOGIC: No headache, vertigo, loss of consciousness, or change in strength/ sensation. ENDOCRINE: No increased thirst. No abnormal weight change HEMATOLOGIC/LYMPHATIC: No anemia, easy bleeding, or history of blood clots. ALLERGIC/IMMUNOLOGIC: No hives or skin allergy. *Physical Exam - Vital Signs Last Vital Signs Temp Pulse Resp BP Pulse Ox 97.8 F 100 H 18 144/85 100 01/31/18 19:52 01/31/18 19:52 01/31/18 19:52 01/31/18 19:52 01/31/18 19:52 - Physical Exam Comments: 01/31/18 21:59 GENERAL: Awake, alert, and fully oriented, in no acute distress HEAD: No signs of trauma, normocephalic, atraumatic EYES: PERRLA, EOMI, sclera anicteric, conjunctiva clear ENT: Auricles normal inspection, hearing grossly normal, nares patent, oropharynx clear without exudates. Moist mucosa NECK: Normal ROM, supple, no lymphadenopathy, JVD, or masses LUNGS: No distress, speaks full sentences, clear to auscultation bilaterally HEART: Regular rate and rhythm, normal S1 and S2, no murmurs, rubs or gallops, peripheral pulses normal and equal bilaterally. ABDOMEN: Soft, nontender, normoactive bowel sounds. No guarding, no rebound. No masses EXTREMITIES: Normal inspection, Normal range of motion, no edema. No clubbing or cyanosis. NEUROLOGICAL: Cranial nerves II through XII grossly intact. Normal speech, normal gait, no focal sensorimotor deficits SKIN: Warm, Dry, normal turgor, no rashes or lesions noted. : Os closed. Minimal blood noted on glove after vaginal exam. Moderate Sedation - Procedure Monitoring Vital Signs: Vital Signs Temp Pulse Resp BP Pulse Ox 97.8 F 100 H 18 144/85 100 01/31/18 19:52 01/31/18 19:52 01/31/18 19:52 01/31/18 19:52 01/31/18 19:52 ED Treatment Course - LABORATORY CBC & Chemistry Diagram: 01/31/18 20:50 01/31/18 20:50 Medical Decision Making - Medical Decision Making 01/31/18 23:53 Ms. Kaye is a 37 yo female w/ pmh as described who presents for evaluation of bleeding in . Labs grossly unconcerning as below. Blood type O positive. US findings consistent with 14w 5d IUP. HR 141. Os closed on evaluation. Repeat BP 130/70. Discharging patient w/ instructions to f/u with OB /DIRECTOR GLOBAL MARKET RESEARCH tomorrow for further evaluation. Patient verbalized agreement and understanding and will comply. Laboratory Results - last 24 hr 01/31/18 01/31/18 01/31/18 20:45 20:50 20:50 WBC 14.4 H D RBC 4.06 Hgb 12.0 D Hct 35.7 MCV 88.0 MCH 29.6 MCHC 33.7 RDW 13.9 Plt Count 339 MPV 8.3 Neutrophils % 60.7 Neutrophils % (Manual) 56.0 D Band Neutrophils % 2.0 Lymphocytes % 26.3 Lymphocytes % (Manual) 30.0 D Monocytes % 10.5 H Monocytes % (Manual) 10 Eosinophils % 2.2 Eosinophils % (Manual) 2.0 Basophils % 0.3 Nucleated RBC % 0 Platelet Estimate Adequate Sodium 135 L Potassium 3.8 Chloride 104 Carbon Dioxide 23 Anion Gap 8 BUN 13 Creatinine 0.6 Random Glucose 177 H Calcium 9.0 Beta HCG, Quant Urine Color Ltyellow Urine Appearance Clear Urine pH 6.0 Ur Specific Talmage 1.024 Urine Protein Negative Urine Glucose (UA) 3+ H Urine Ketones Negative Urine Blood 3+ H Urine Nitrite Negative Urine Bilirubin Negative Urine Urobilinogen Negative Ur Leukocyte Esterase Negative Urine WBC (Auto) 2 Urine RBC (Auto) 19 Ur Epithelial Cells Rare Blood Type Antibody Screen 01/31/18 01/31/18 20:50 20:50 WBC RBC Hgb Hct MCV MCH MCHC RDW Plt Count MPV Neutrophils % Neutrophils % (Manual) Band Neutrophils % Lymphocytes % Lymphocytes % (Manual) Monocytes % Monocytes % (Manual) Eosinophils % Eosinophils % (Manual) Basophils % Nucleated RBC % Platelet Estimate Sodium Potassium Chloride Carbon Dioxide Anion Gap BUN Creatinine Random Glucose Calcium Beta HCG, Quant 03352.7 Urine Color Urine Appearance Urine pH Ur Specific [place] Urine Protein Urine Glucose (UA) Urine Ketones Urine Blood Urine Nitrite Urine Bilirubin Urine Urobilinogen Ur Leukocyte Esterase Urine WBC (Auto) Urine RBC (Auto) Ur Epithelial Cells Blood Type O POSITIVE Antibody Screen Negative *DC/Admit/Observation/Transfer Diagnosis at time of Disposition: Vaginal bleeding in - Discharge Dispostion Disposition: HOME - Referrals Referrals: Carrie Lange MD [Staff Physician] - - Patient Instructions Printed Discharge Instructions: DI for Vaginal Bleeding Additional Instructions: Please follow-up with CLASSIFIED AD TAKER tomorrow for further evaluation as discussed. Return to ER if any pain, fever, chills, increased bleeding or other concerning symptoms. - Post Discharge Activity Forms/Work/School Notes: Back to Work
[2018-01-31 20:56] LABS: BASO % 0.3 % (0-2.0); EOS % 2.2 % (0-4.5); HEMATOCRIT 35.7 % (32.4-45.2); LYMPH % 26.3 % (8-40); MCH 29.6 pg (25.7-33.7); MCHC 33.7 g/dl (32.0-36.0); MEAN PLT VOLUME 8.3 fl (7.5-11.1); MONO % 10.5 % (3.8-10.2); NEUT % 60.7 % (42.8-82.8); PLATELET COUNT 339 K/MM3 (134-434); RBC 4.06 M/mm3 (3.60-5.2); RDW 13.9 % (11.6-15.6); WHITE BLOOD COUNT 14.4 K/mm3 (4.0-10.0)
[2018-01-31 21:31] LABS: ANION GAP 8 (8-16); BLOOD UREA NITROGEN 13 mg/dL (7-18); CHLORIDE 104 mmol/L (98-107); CO2 23 mmol/L (21-32); CREATININE 0.6 mg/dL (0.55-1.02); GLUCOSE,RANDOM 177 mg/dL (74-106); POTASSIUM 3.8 mmol/L (3.5-5.1); SODIUM 135 mmol/L (136-145)
--- NOTE | 2018-01-31 21:37 | PDOC ---
Attending Attestation - Resident Resident Name: Justin Fischer - ED Attending Attestation I have performed the following: I have examined & evaluated the patient, The case was reviewed & discussed with the resident, I agree w/resident's findings & plan, Exceptions are as noted - HPI HPI: 01/31/18 21:45 The patient is a 37 year old female who is 14 weeks with a significant PMH of diabetes, increased BP during who presents to the emergency department with vaginal bleeding beginning earlier today. The patient states her vaginal bleeding is similar in volume to her menstruation. She reports only one episode of bleeding. Denies any abd pain or cramping. The patient denies any dysuria or vaginal discharge. She denies fevers and chills. Denies headache, LE edema, weakness/numbness, Allergies: NKDA OB: Dr. Lange - Physicial Exam PE: 01/31/18 21:46 GENERAL: Awake, alert, and fully oriented, in no acute distress HEAD: No signs of trauma EYES: PERRLA, EOMI, sclera anicteric, conjunctiva clear ENT: Auricles normal inspection, hearing grossly normal, nares patent, oropharynx clear without exudates. Moist mucosa NECK: Normal ROM, supple, no lymphadenopathy, JVD, or masses LUNGS: Breath sounds equal, clear to auscultation bilaterally. No wheezes, and no crackles HEART: Regular rate and rhythm, normal S1 and S2, no murmurs, rubs or gallops ABDOMEN: Soft, nontender, normoactive bowel sounds. No guarding, no rebound. No masses. + gravid uterus PELVIC: agree with Dr. Fischer exam EXTREMITIES: Normal range of motion, no edema. No clubbing or cyanosis. No cords , erythema, or tenderness BACK: No midline spinal tenderness in cervical/thoracic/lumbar region NEUROLOGICAL: Normal speech, cranial nerves intact, negative pronator drift, 5/ 5 strength in all 4 extremities, normal sensation to light touch in all 4 extremities, normal cerebellar exam, normal gait, normal reflexes and tone SKIN: Warm, Dry, normal turgor, no rashes or lesions noted. - Medical Decision Making 01/31/18 21:35 37yo F 14 weeks preg presents to ED with 1 episode of dark red vaginal bleeding about the amount she would get from her period. No pain. BP initially mildly elevated, checked 3 times, found to be 130/70. Exam benign thus far, pelvic exam pending. DDx includes threatened Ab, placenta previa, subchorionic bleed. Plan: -labs -ua -us -reassess 02/01/18 00:11 Labs, urinalysis, ultrasound within normal limits. Cervix closed on pelvic exam. Likely threatened . Patient will follow-up with her OB doctor tomorrow. She feels well and appears clinically well at this time. Requests discharge home. I discussed the physical exam findings, ancillary test results and final diagnoses with the patient. I answered all of the patient's questions. The patient was satisfied with the care received and felt comfortable with the discharge plan and treatment plan. The patient will call their primary care physician within 24 hours to arrange follow-up and will return to the Emergency Department with any new, persistent or worsening symptoms.
[2018-01-31 21:51] LABS: URINE APPEARANCE CLEAR; URINE BILIRUBIN NEGATIVE (<2.0 mg/dL); URINE BLOOD 3+ (NEGATIVE); URINE COLOR LTYELLOW; URINE GLUCOSE (UA) 3+ (NEGATIVE); URINE KETONE NEGATIVE (NEGATIVE); URINE LEUK ESTERASE NEGATIVE (NEGATIVE); URINE NITRITE NEGATIVE (NEGATIVE); URINE PROTEIN NEGATIVE (NEGATIVE); URINE UROBILINOGEN NEGATIVE mg/dL (0.2-1.0)
[2018-01-31 21:52] LABS: PLATELET ESTIMATE ADEQUATE
[2018-01-31 21:54] LABS: EPI CELLS RARE /HPF (FEW)
== END 2018-02-01 00:31 | disposition home or self-care (01) ==
LOC: JER 19:49
DX: O26.892 Other specified pregnancy related conditions, second trimester (principal); O46.92 Antepartum hemorrhage, unspecified, second trimester; O24.112 Pre-existing type 2 diabetes mellitus, in pregnancy, second trimester; E11.9 Type 2 diabetes mellitus without complications; Z79.4 Long term (current) use of insulin; Z3A.14 14 weeks gestation of pregnancy
CPT/HCPCS: 36415; 76801-TC; 80048; 81003; 81015; 84702; 85025; 86850; 86900; 86901; 87086; 99281-25

== ENCOUNTER 2018-07-05 08:55 | Inpatient (IN) | payer OTHER ==
[2018-07-05] MEDS ORDERED: LACTATED RINGERS SOLUTION 1,000 ML IV SCH (10:45)
[2018-07-05 12:09] LABS: BASO % 0.5 % (0-2.0); EOS % 0.6 % (0-4.5); HEMATOCRIT 40.6 % (32.4-45.2); HEMOGLOBIN 13.4 GM/dL (10.7-15.3); LYMPH % 24.7 % (8-40); MCH 29.2 pg (25.7-33.7); MEAN CELL VOLUME 88.5 fl (80-96); MEAN PLT VOLUME 9.4 fl (7.5-11.1); MONO % 10.9 % (3.8-10.2); NEUT % 63.3 % (42.8-82.8); PLATELET COUNT 252 K/MM3 (134-434); RBC 4.59 M/mm3 (3.60-5.2); RDW 13.9 % (11.6-15.6); WHITE BLOOD COUNT 11.4 K/mm3 (4.0-10.0)
[2018-07-05 12:10] LABS: URINE APPEARANCE CLEAR; URINE BILIRUBIN NEGATIVE (<2.0 mg/dL); URINE COLOR STRAW; URINE GLUCOSE (UA) 2+ (NEGATIVE); URINE KETONE NEGATIVE (NEGATIVE); URINE LEUK ESTERASE NEGATIVE (NEGATIVE); URINE NITRITE NEGATIVE (NEGATIVE); URINE PROTEIN NEGATIVE (NEGATIVE); URINE UROBILINOGEN NEGATIVE mg/dL (0.2-1.0)
[2018-07-05] MEDS: LACTATED RINGERS SOLUTION 1,000 ML IV SCH ×2 (12:25→14:30)
[2018-07-05 12:49] LABS: ALBUMIN 2.7 g/dl (3.4-5.0); ALK PHOS 132 U/L (45-117); ANION GAP 10 MMOL/L (8-16); BILIRUBIN,TOTAL 0.4 mg/dL (0.2-1); BLOOD UREA NITROGEN 8 mg/dL (7-18); CALCIUM 9.1 mg/dL (8.5-10.1); CHLORIDE 104 mmol/L (98-107); CO2 23 mmol/L (21-32); CREATININE 0.5 mg/dL (0.55-1.3); GAMMA GLUTAMYL TRANSPEPTIDASE 19 U/L (5-85); GLUCOSE,RANDOM 81 mg/dL (74-106); SGOT/AST 23 U/L (15-37); SGPT/ALT 23 U/L (13-61); SODIUM 137 mmol/L (136-145); TOT PROT 6.9 g/dl (6.4-8.2); URIC ACID 2.1 mg/dL (2.6-7.2)
--- NOTE | 2018-07-05 17:45 | HP ---
Past Medical History - Primary Care Physician PCP:: Carrie Lange - Admission Chief Complaint: Decreased movement. Contractions. nonreasuring tracing. Chronic Hypertension. Diabetes. obesity. poor history. high risk prgnancy. Hx of demise. IUP 36.2 weeks History Source: Patient Limitations to Obtaining History: No Limitations - Past Medical History Cardiovascular: Yes: HTN. No: CHF ...: 3 ...Para: 2 ...Term: 1 ...: 1 ...Spon : 0 ...Induced : 0 ...LMP: 10/26/17 ... Weeks Gestation by Dates: 36.0 ...EDC by Dates: 08/02/18 ...EDC by Sono: 08/01/18 Endocrine: Yes: Diabetes Mellitus (Type 2 - follows with endocrinology). No: Hyperthyroidism, Hypothyroidism - Past Surgical History Past Surgical History: Yes: Hx Myomectomy: No Hx Transabdominal Cerclage: No - Smoking History Smoking history: Never smoked Have you smoked in the past 12 months: No - Alcohol/Substance Use Hx Alcohol Use: No History of Substance Use: reports: None - Social History Usual Living Arrangement: Yes: With Spouse ADL: Independent History of Recent Travel: No Home Medications - Allergies Allergies/Adverse Reactions: Allergies Allergy/AdvReac Type Severity Reaction Status Date / Time No Known Drug Allergies Allergy Verified 07/05/18 10:04 - Home Medications Home Medications: Ambulatory Orders Insulin Pump/Infus. Set/Meter [Accu-Chek Combo System] 1 each MC TID 06/24/18 Pnv No.95/Ferrous Fum/Folic AC [ Vitamin Tablet] 1 each PO DAILY Aspirin [ASA -] 1 tab PO DAILY 07/05/18 Physical Exam - Maternity Vital Signs: Vital Signs Temperature 98.0 F 07/05/18 16:00 Pulse Rate 74 07/05/18 17:00 Respiratory Rate 20 07/05/18 17:00 Blood Pressure 143/79 07/05/18 17:00 O2 Sat by Pulse Oximetry (%) Constitutional: Yes: Well Nourished, No Distress, Obese Neck: Yes: WNL, Supple Cardiovascular: Yes: WNL, Regular Rate and Rhythm Lungs: Clear to auscultation Breast(s): Yes: WNL - Abdominal Exam/OB Fundal Height: 38 Number of Fetuses: Single Presentation: Vertex Contractions: Yes Monitor Mode: External Category: I Accelerations: Non-Uniform Decelerations: Variable - Vaginal Exam/OB Amniotic Membrane Status: Intact Presentation: Vertex/Position - Physical Exam Musculoskeletal: Yes: WNL Extremities: Yes: WNL Edema: No Integumentary: Yes: WNL - Labs Lab Results: CBC, BMP 07/05/18 11:50 07/05/18 11:50 Hemorrhage Risk Assessment - Risk Factors Medium Risk Factors: Yes: Prior , uterine surgery,or multiple laparotomies Risk Score: 1 Risk Level: Medium Risk Problem List - Problems (1) Diabetes mellitus Code(s): E11.9 - TYPE 2 DIABETES MELLITUS WITHOUT COMPLICATIONS Assessment/Plan Diabetes type 2 Previous Secton iup at 36.2 week high risk chronic hypertension obesity macrosomia Cat 1 with variable decels x 1 AMA decreased movement contractions Plan Repeat Section if contractions continue in am 24 urine collection consider steroids BGMs admit for observation preeclamptic labs Notify administrative associate & anesthesia
[2018-07-05] MEDS ORDERED: CITRIC ACID/SODIUM CITRATE 30 ML UNIT-DOSE CUP PO ONE (17:51)
[2018-07-05 17:53] VITALS: BMI 33.5
[2018-07-05] MEDS ORDERED: BETAMET ACET/BETAMET NA PH 30 MG/5 ML VIAL IM ONE (17:53)
[2018-07-05] MEDS ORDERED: BETAMET ACET/BETAMET NA PH 30 MG/5 ML VIAL ONE (17:57)
[2018-07-05] MEDS ORDERED: ELECTROLYTE-148 SOLN 1,000 ML IV SCH (18:00)
[2018-07-05 20:31] LABS: PROTHROMBIN TIME (PATIENT) 11.8 SEC (9.7-13.0)
[2018-07-05 20:34] LABS: ACTIVATED PTT 25.3 SECONDS (25.2-36.5)
[2018-07-06] MEDS ORDERED: OXYTOCIN 20 UNITS in 0.9% NS 40 UNIT/2,000 ML INFUS.BAG IV ONE (07:50)
[2018-07-06] MEDS ORDERED: ceFAZolin SODIUM 1 GM VIAL ONE ×3 (07:52→23:40)
[2018-07-06] MEDS ORDERED: ePHEDrine SULFATE 50 MG/1 ML AMPULE ONE (07:53)
[2018-07-06] MEDS ORDERED: morphine SULFATE/Preservative Free 0.5 MG/ML (1cc Syringe) ONE (07:53)
--- NOTE | 2018-07-06 07:55 | PN ---
Ante-Partal Exam - Subjective Subjective: Pt with c/o contractions - labor previous section diabetes chronic htn ama Vital Signs: Vital Signs Temperature 98.1 F 07/06/18 06:00 Pulse Rate 74 07/06/18 06:00 Respiratory Rate 20 07/06/18 06:00 Blood Pressure 135/77 07/06/18 06:00 O2 Sat by Pulse Oximetry (%) Bleeding: No Headache: No Visual changes: No Right upper quadrant pain: No - Contractions Contractions: Yes Regularity: Regular Monitor Mode: External - Exam during Labor Variability: Moderate Category: I Monitor Accelerations: Present Monitor Decelerations: None Exam: Vaginal Dilatation (cm): closed Effacement (%): 50 Amniotic Membrane Status: Intact Presentation: Vertex Station: -1 - Intrapartum Hemorrhage Risk Risk Score: 2 Risk Level: High Risk - Assessment/Plan Assessment/Plan: previous Section labor Diabetes type 2 AMA Obesity chronic hypertension IUP at 36 weeks sp steroids 1 dose multiparity Voluntary Sterilization Plan repeat CS Bilateral salpingectomy
[2018-07-06] MEDS ORDERED: OXYTOCIN 20 UNITS in 0.9% NS 20 UNIT/1,000 ML INFUS.BAG IV SCH (08:00)
[2018-07-06] MEDS ORDERED: METHYLERGONOVINE MALEATE 0.2 MG/1 ML AMP IM PRN (08:00)
[2018-07-06] MEDS ORDERED: KETOROLAC TROMETHAMINE 30 MG/1 ML VIAL ONE (08:54)
[2018-07-06] MEDS ORDERED: LIDOCAINE HCL/PF 2% SDV 5ML VIAL ONE (08:54)
[2018-07-06 08:55] LABS: ARTERIAL BLD GAS O2 SATURATION 6.1 % (90-98.9); ARTERIAL BLOOD GAS BASE EXCESS -0.8 meq/l (-2-2); ARTERIAL BLOOD GAS pH 7.24 (7.35-7.45)
[2018-07-06 08:59] LABS: VENOUS PH 7.3 (7.32-7.42); VENOUS PO2 19.2 mmHg (28-48)
[2018-07-06 09:08] LABS: ARTERIAL BLOOD GAS PCO2 67.7 mmHg (35-45); ARTERIAL BLOOD GAS PO2 7.7 mmHg (80-100)
[2018-07-06] MEDS ORDERED: ONDANSETRON 4 MG/2 ML VIAL IVPUSH PRN (09:33)
[2018-07-06] MEDS ORDERED: ACETAMINOPHEN 1000 MG/100 ML VIAL (NON FORMULARY) IVPB PRN (09:34)
[2018-07-06] MEDS ORDERED: CEFAZOLIN 1 GM in DEXTROSE 5%-WATER - 50 ML IVPB SCH (10:00)
[2018-07-06] MEDS ORDERED: DEXTROSE 5%-WATER - 50 ML IVPB ONE ×2 (15:22→23:40)
[2018-07-06] MEDS: CEFAZOLIN 1 GM in DEXTROSE 5%-WATER - 50 ML IVPB SCH ×2 (15:26→23:58)
[2018-07-07 07:30] LABS: BASO % 0.2 % (0-2.0); EOS % 0.4 % (0-4.5); HEMOGLOBIN 10.5 GM/dL (10.7-15.3); LYMPH % 16.5 % (8-40); MCH 29.3 pg (25.7-33.7); MCHC 32.8 g/dl (32.0-36.0); MEAN CELL VOLUME 89.3 fl (80-96); MEAN PLT VOLUME 9.4 fl (7.5-11.1); MONO % 15.4 % (3.8-10.2); NEUT % 67.5 % (42.8-82.8); PLATELET COUNT 204 K/MM3 (134-434); RBC 3.59 M/mm3 (3.60-5.2); WHITE BLOOD COUNT 16.9 K/mm3 (4.0-10.0)
[2018-07-07] MEDS ORDERED: DEXTROSE 5%-WATER - 50 ML IVPB ONE (07:38)
[2018-07-07] MEDS ORDERED: ceFAZolin SODIUM 1 GM VIAL ONE (07:38)
[2018-07-07] MEDS: CEFAZOLIN 1 GM in DEXTROSE 5%-WATER - 50 ML IVPB SCH (07:58)
[2018-07-07] MEDS ORDERED: BISACODYL 10 MG SUPP.RECT RC PRN (08:00)
[2018-07-07] MEDS ORDERED: oxyCODONE HCL 5 MG TABLET PO PRN ×2 (08:00)
--- NOTE | 2018-07-07 09:18 | OP ---
Operative Note - Note: Operative Date: 07/06/18 Pre-Operative Diagnosis: labor. previous Section. Diabetes type 2. iup at 34 week. AMA. Chronic HTN. [place] Operation: Repeat Section. bilateral salpingectomy Findings: live Post-Operative Diagnosis: Same as Pre-op Surgeon: Carrie Lange Nanotechnology Technician: James Gibbs Anesthesia: Spinal Estimated Blood Loss (mls): 700 Operative Report Dictated: Yes
--- NOTE | 2018-07-07 10:03 | OP ---
DATE OF OPERATION: 07/06/2018 PREOPERATIVE DIAGNOSES: labor; previous section; diabetes, type 2; intrauterine at 34 weeks; advanced maternal age; chronic hypertension; and macrosomia. OPERATION: Repeat section and bilateral salpingectomy. POSTOPERATIVE DIAGNOSES: labor; previous section; diabetes, type 2; intrauterine at 34 weeks; advanced maternal age; chronic hypertension; and macrosomia. SURGEON: Faisal Lange MD AUTOMOTIVE BUYER: MICHEL Ruiz FINDINGS: Live infant delivered in OT position. Nose and mouth suction performed. PROCEDURE: Patient was taken to the operating room, placed in dorsal lithotomy position, prepped and draped in the usual sterile fashion. Timeout was performed in accordance with hospital regulation. A Pfannenstiel skin incision was made with a scalpel. Cautery was then used to go through layers of abdominal wall to the level of the fascia. Fascia was cut in the midline, and cautery was then used to open the fascia in the following fashion. Ken was then used to bluntly and sharply dissect the rectus muscle off the fascia. Muscles split in the midline. Peritoneal cavity was then entered and carried upward and downward. Bladder retractor was then placed. Vesicouterine reflection was then entered. Bladder was bluntly dissected out of the operative field. Scalpel was then used to make a low transverse uterine incision. Incision was carried upward using bandage scissors. A live male was delivered in OT position. Nose and mouth suction performed. Shoulders were delivered without difficulty. Cord was clamped and cut. Cord blood obtained. Placenta was manually extracted from the uterus. Uterus exteriorized and cleaned with clean lap pads. Cord blood obtained, cord pH obtained, and uterus was exteriorized. LigaSure was then used to coagulate and cut. Adhesions were noted on the uterus. Uterine incision was closed using 0 Biosyn suture, first layer continuous and locking; second layer imbricating the first layer. Hemostasis was achieved using [id number] sutures. LigaSure was then used to do a bilateral salpingectomy both on the right tube and then on the left tube. Tube was then removed and submitted to Pathology. Uterus was interiorized. Abdominal cavity cleaned with clean lap pads. Peritoneum closed using 0 Biosyn suture. Muscles approximated in the midline using 0 Biosyn suture. Fascia was then closed using 0 Vicryl suture in 2 parts. Skin was then closed using 3-0 Vicryl in subcuticular fashion. Wound was washed and dressed. Patient had tolerated the procedure well, was sent to recovery room in stable condition. FAISAL LANGE M.D. [id number]
[2018-07-07] MEDS: PRENATAL VITAMINS W/ FOLIC ACID TABLET (FP) PO SCH (10:18)
--- NOTE | 2018-07-07 11:08 | PN ---
Progress Note (SOAP) - Subjective Chief Complaint: Pt doing well - Current Medications Current Medications: Active Medications Acetaminophen (Tylenol -) 650 mg PO Q4H PRN PRN Reason: FEVER Acetaminophen (Ofirmev Injection -) 1,000 mg IVPB Q6H PRN PRN Reason: FEVER Bisacodyl (Dulcolax Suppository -) 10 mg RC PRN PRN PRN Reason: CONSTIPATION Diphenhydramine HCl (Benadryl Injection -) 25 mg IVPUSH Q4H PRN PRN Reason: Pruritis Last Admin: 07/06/18 13:05 Dose: 25 mg Diphtheria/Tetanus/Acell Pertussis (Boostrix -) 0.5 ml IM .ONCE ONE Stop: 07/08/18 10:01 Lactated Ringer's (Lactated Ringers Solution) 1,000 mls @ 250 mls/hr IV ASDIR [facility] Last Admin: 07/05/18 14:30 Dose: 250 mls/hr Parenteral Electrolytes (Plasma-Lyte 148 -) 1,000 mls @ 125 mls/hr IV ASDIR [facility] Last Admin: 07/05/18 18:34 Dose: 125 mls/hr Oxytocin/Sodium Chloride (Normal Saline+20 Units Oxytocin -) 20 unit in 1,000 mls @ 125 mls/hr IV ASDIR [facility] Last Admin: 07/06/18 15:27 Dose: 125 mls/hr Cefazolin Sodium 1 gm/ (Dextrose) 50 mls @ 100 mls/hr IVPB Q8H [facility] Stop: 07/07/18 15:59 Last Admin: 07/07/18 07:58 Dose: 100 mls/hr Ibuprofen (Motrin -) 600 mg PO Q4H PRN PRN Reason: PAIN LEVEL 1 - 3 Methylergonovine Maleate (Methergine Injection -) 0.2 mg IM Q4H PRN PRN Reason: Excessive Bleeding (L&D) Ondansetron HCl (Zofran Injection) 4 mg IVPUSH Q4H PRN PRN Reason: NAUSEA Oxycodone HCl (Roxicodone -) 5 mg PO Q4H PRN PRN Reason: PAIN LEVEL 4 - 6 Oxycodone HCl (Roxicodone -) 10 mg PO Q4H PRN PRN Reason: PAIN LEVEL 7 - 10 Stop: 07/08/18 07:59 Multivit/Folic Acid/Iron ( Vitamins (Sjr) -) 1 tab PO DAILY VANDANA Last Admin: 07/07/18 10:18 Dose: Not Given Simethicone (Mylicon -) 80 mg PO Q4H PRN PRN Reason: GAS - Objective Vital Signs: Vital Signs Temperature 98.4 F 07/07/18 09:42 Pulse Rate 80 07/07/18 09:42 Respiratory Rate 20 07/07/18 09:42 Blood Pressure 135/65 07/07/18 09:42 O2 Sat by Pulse Oximetry (%) 98 07/06/18 21:00 Constitutional: Yes: Well Nourished, No Distress Cardiovascular: Yes: WNL, Regular Rate and Rhythm Respiratory: Yes: WNL Gastrointestinal: Yes: WNL, Normal Bowel Sounds, Soft ...Rectal Exam: Yes: WNL Genitourinary: Yes: WNL ....Post : Yes: Uterus firm, Uterus non-tender Breast(s): Yes: WNL Musculoskeletal: Yes: WNL Extremities: Yes: WNL Wound/Incision: Yes: Clean/Dry, Well Approximated, Dressing Removed Neurological: Yes: WNL, Alert, Oriented Labs Lab Results: CBC, BMP 07/07/18 07:00 07/05/18 11:50 Problem List - Problems (1) Diabetes mellitus Code(s): E11.9 - TYPE 2 DIABETES MELLITUS WITHOUT COMPLICATIONS Assessment/Plan Diabetes type 2 Previous Secton POD1 chronic htn - doing well Plan continue to monitor glucose & BP OOB ambulate
[2018-07-07] MEDS: SIMETHICONE 80 MG TAB.CHEW (FP) PO PRN ×2 (13:20→23:29)
[2018-07-07] MEDS: ACETAMINOPHEN 325 MG TABLET (FP) PO PRN ×2 (13:21→23:29)
[2018-07-07] MEDS: IBUPROFEN 600 MG TABLET (FP) PO PRN ×2 (13:21→23:30)
--- NOTE | 2018-07-07 14:09 | PN ---
Progress Note (short form) - Note Progress Note: ANESTHESIA POSTOP 38 yo female POD#1 s/p c/section under spinal Patient resting comfortably in bed. Pain adequately controlled. Tolerating PO VSS, Afebrile Continue current care. Encouraged ambulation. No anesthetic complications
--- NOTE | 2018-07-07 16:25 | CONSULT ---
Consultation: REQUESTING PROVIDER: CONSULT REQUEST: We have been asked to medically evaluate this patient for diabetes management. HISTORY OF PRESENT ILLNESS: 38 y/o F w/ PMHx T2DM w/ insulin pump, prior , HTN, POD#1 s/p c- section for high risk w/ active contractions. Doing well post- operatively, tolerating PO. POC glucose post-prandially 182 @ 3pm, self- administered 18U insulin via pump, endocrinology consult placed at that time. REVIEW OF SYSTEMS: negative throughout PHYSICAL EXAMINATION Vital Signs - 24 hr 07/06/18 07/06/18 07/06/18 17:00 18:00 19:00 Temperature Pulse Rate Respiratory 20 20 18 Rate Blood Pressure O2 Sat by Pulse Oximetry (%) 07/06/18 07/06/18 07/06/18 20:00 21:00 22:00 Temperature 98.8 F Pulse Rate 87 Respiratory 18 18 18 Rate Blood Pressure 116/73 O2 Sat by Pulse 98 Oximetry (%) 07/06/18 07/07/18 07/07/18 23:00 00:00 02:00 Temperature 98.9 F Pulse Rate 76 Respiratory 18 18 18 Rate Blood Pressure 112/76 O2 Sat by Pulse Oximetry (%) 07/07/18 07/07/18 07/07/18 04:00 06:00 08:00 Temperature 98.4 F Pulse Rate 74 Respiratory 18 18 18 Rate Blood Pressure 126/64 O2 Sat by Pulse Oximetry (%) 07/07/18 09:42 Temperature 98.4 F Pulse Rate 80 Respiratory 20 Rate Blood Pressure 135/65 O2 Sat by Pulse Oximetry (%) GENERAL: A&Ox3, NAD HEAD: NC/AT EYES: PERRLA, EOMI EARS, NOSE, THROAT: Ears normal, nares patent, oropharynx clear without exudates. Moist mucous membranes. NECK: Normal range of motion, supple, no thyromegaly, no lymphadenopathy, JVD, or masses. LUNGS: CTA b/l HEART: RRR no m/r/g ABDOMEN: +bs, soft, diffusely tender, dressing c/d/i EXTREMITIES: 2+ pulses, warm, well-perfused. No peripheral edema. NEUROLOGICAL: process stripper, motor, sensory systems without focal deficit PSYCHIATRIC: Cooperative. Good eye contact. Appropriate mood and affect. SKIN: Warm, dry, normal turgor, no rashes or lesions noted. Insulin pump in place. Laboratory Results - last 24 hr 07/06/18 07/07/18 07/07/18 21:01 07:00 11:00 WBC 16.9 H RBC 3.59 L Hgb 10.5 L Hct 32.0 L D MCV 89.3 MCH 29.3 MCHC 32.8 RDW 14.0 Plt Count 204 MPV 9.4 Absolute Neuts (auto) 11.4 H Neutrophils % 67.5 Lymphocytes % 16.5 D Monocytes % 15.4 H Eosinophils % 0.4 Basophils % 0.2 Nucleated RBC % 0 POC Glucometer 78 69 Active Medications Generic Name Dose Route Start Last Admin Trade Name Freq PRN Reason Stop Dose Admin Acetaminophen 650 mg 07/06/18 08:00 07/07/18 13:21 Tylenol - PO 650 mg Q4H PRN Administration FEVER Acetaminophen 1,000 mg 07/06/18 09:34 Ofirmev Injection - IVPB Q6H PRN FEVER Bisacodyl 10 mg 07/07/18 08:00 Dulcolax Suppository - RC PRN PRN CONSTIPATION Diphenhydramine HCl 25 mg 07/06/18 09:33 07/06/18 13:05 Benadryl Injection - IVPUSH 25 mg Q4H PRN Administration Pruritis Diphtheria/Tetanus/Acell Pertussis 0.5 ml 07/08/18 10:00 Boostrix - IM 07/08/18 10:01 .ONCE ONE Lactated Ringer's 1,000 mls @ 250 mls/hr 07/05/18 11:45 07/05/18 14:30 Lactated Ringers Solution IV 250 mls/hr ASDIR VANDANA Administration Parenteral Electrolytes 1,000 mls @ 125 mls/hr 07/05/18 18:00 07/05/18 18:34 Plasma-Lyte 148 - IV 125 mls/hr ASDIR VANDANA Administration Oxytocin/Sodium Chloride 20 unit in 1,000 mls @ 125 mls/hr 07/06/18 08:00 15:27 Normal Saline+20 Units Oxytocin - IV 125 mls/hr ASDIR VANDANA Administration Ibuprofen 600 mg 07/06/18 08:00 07/07/18 13:21 Motrin - PO 600 mg Q4H PRN Administration PAIN LEVEL 1 - 3 Methylergonovine Maleate 0.2 mg 07/06/18 08:00 Methergine Injection - IM Q4H PRN Excessive Bleeding (L&D) Ondansetron HCl 4 mg 07/06/18 09:33 Zofran Injection IVPUSH Q4H PRN NAUSEA Oxycodone HCl 5 mg 07/07/18 08:00 Roxicodone - PO Q4H PRN PAIN LEVEL 4 - 6 Oxycodone HCl 10 mg 07/07/18 08:00 Roxicodone - PO 07/08/18 07:59 Q4H PRN PAIN LEVEL 7 - 10 Multivit/Folic Acid/Iron 1 tab 07/07/18 10:00 07/07/18 10:18 Vitamins (Sjr) - PO Not Given DAILY VANDANA Simethicone 80 mg 07/06/18 08:00 07/07/18 13:20 Mylicon - PO 80 mg Q4H PRN Administration GAS ASSESSMENT/PLAN: -T2DM, episode of hypoglycemia s/p delivery Plan: -d/c pump -BGM ACHS -SSI: <120: 0 units 121-150: 4 units 151-180: 7 units 181-210: 9 units 210-250: 12 units >250: 14 units Visit type - Emergency Visit Emergency Visit: No - New Patient This patient is new to me today: Yes Date on this admission: 07/07/18 - Critical Care Critical Care patient: No
[2018-07-07] MEDS: INSULIN SLIDING SCALE (NOVOLOG) 1 VIAL SQ SCH ×2 (18:38→21:47)
[2018-07-07] MEDS ORDERED: INSULIN SLIDING SCALE (NOVOLOG) 1 VIAL SQ SCH (22:00)
[2018-07-08] MEDS: INSULIN SLIDING SCALE (NOVOLOG) 1 VIAL SQ SCH ×4 (08:00→22:19)
[2018-07-08] MEDS ORDERED: DIPHTH,PERTUSS(ACELL),TET 0.5 ML DISP.SYRIN IM ONE (10:00)
[2018-07-08] MEDS: PRENATAL VITAMINS W/ FOLIC ACID TABLET (FP) PO SCH (11:20)
[2018-07-08] MEDS: IBUPROFEN 600 MG TABLET (FP) PO PRN ×2 (11:21→21:19)
[2018-07-08] MEDS: ACETAMINOPHEN 325 MG TABLET (FP) PO PRN ×2 (11:21→21:20)
[2018-07-08] MEDS: SIMETHICONE 80 MG TAB.CHEW (FP) PO PRN (21:19)
[2018-07-09 07:27] LABS: BASO % 0.3 % (0-2.0); EOS % 3.2 % (0-4.5); HEMATOCRIT 31.7 % (32.4-45.2); HEMOGLOBIN 10.5 GM/dL (10.7-15.3); LYMPH % 19.9 % (8-40); MCHC 33.2 g/dl (32.0-36.0); MEAN CELL VOLUME 90.2 fl (80-96); MEAN PLT VOLUME 8.6 fl (7.5-11.1); NEUT % 64.6 % (42.8-82.8); PLATELET COUNT 226 K/MM3 (134-434); RBC 3.52 M/mm3 (3.60-5.2); RDW 13.5 % (11.6-15.6); WHITE BLOOD COUNT 10.4 K/mm3 (4.0-10.0)
--- NOTE | 2018-07-09 08:02 | PN ---
Post Progress Note - Subjective Subjective: Doing well Post Day: 3 Type of Delivery: Repeat C/S Vital Signs: Vital Signs Temperature 98.7 F 07/08/18 20:09 Pulse Rate 82 07/08/18 20:09 Respiratory Rate 20 07/08/18 20:09 Blood Pressure 157/75 07/08/18 20:09 O2 Sat by Pulse Oximetry (%) 98 07/06/18 21:00 Breast Exam: Yes: Soft Incision: Yes: Sutures intact Abdomen/GI: Yes: Abdomen soft, Tolerating PO Lochia: Yes: Rubra Lochia, amount: Small Extremities: Yes: Calves non-tender Activity: Ambulating - Labs Labs: CBC WBC 16.9 K/mm3 (4.0-10.0) H 07/07/18 07:00 RBC 3.59 M/mm3 (3.60-5.2) L 07/07/18 07:00 Hgb 10.5 GM/dL (10.7-15.3) L 07/07/18 07:00 Hct 32.0 % (32.4-45.2) L D 07/07/18 07:00 MCV 89.3 fl (80-96) 07/07/18 07:00 MCH 29.3 pg (25.7-33.7) 07/07/18 07:00 MCHC 32.8 g/dl (32.0-36.0) 07/07/18 07:00 RDW 14.0 % (11.6-15.6) 07/07/18 07:00 Plt Count 204 K/MM3 (134-434) 07/07/18 07:00 MPV 9.4 fl (7.5-11.1) 07/07/18 07:00 Absolute Neuts (auto) 11.4 K/mm3 (1.5-8.0) H 07/07/18 07:00 Neutrophils % 67.5 % (42.8-82.8) 07/07/18 07:00 Lymphocytes % 16.5 % (8-40) D 07/07/18 07:00 Monocytes % 15.4 % (3.8-10.2) H 07/07/18 07:00 Eosinophils % 0.4 % (0-4.5) 07/07/18 07:00 Basophils % 0.2 % (0-2.0) 07/07/18 07:00 Nucleated RBC % 0 % (0-0) 07/07/18 07:00 Retic Count 1.53 % (0.5-1.5) H 07/05/18 11:50 Haptoglobin 84 mg/dL (34-200) 07/05/18 11:50 Problem List - Problems (1) Status post repeat low transverse section Code(s): Z98.891 - HISTORY OF UTERINE SCAR FROM PREVIOUS SURGERY Assessment/Plan Status post repeat C-Sectio Stable Continue post op care
[2018-07-09] MEDS: INSULIN SLIDING SCALE (NOVOLOG) 1 VIAL SQ SCH ×4 (08:16→22:27)
[2018-07-09] MEDS: PRENATAL VITAMINS W/ FOLIC ACID TABLET (FP) PO SCH (09:23)
[2018-07-09] MEDS: IBUPROFEN 600 MG TABLET (FP) PO PRN (21:13)
[2018-07-09] MEDS: SIMETHICONE 80 MG TAB.CHEW (FP) PO PRN (21:13)
[2018-07-09] MEDS: ACETAMINOPHEN 325 MG TABLET (FP) PO PRN (21:14)
--- NOTE | 2018-07-10 06:22 | DS ---
Physical Exam-PACKAGE SORTER Vital Signs: Vital Signs Temperature 98.3 F 07/09/18 20:37 Pulse Rate 90 07/09/18 20:37 Respiratory Rate 20 07/09/18 20:37 Blood Pressure 144/83 07/09/18 20:37 O2 Sat by Pulse Oximetry (%) 98 07/06/18 21:00 Constitutional: Yes: Well Nourished, No Distress Neck: Yes: WNL Cardiovascular: Yes: WNL Respiratory: Yes: WNL Gastrointestinal: Yes: WNL ....Post : Yes: Uterus firm, Uterus non-tender Musculoskeletal: Yes: WNL Extremities: Yes: WNL Edema: No Wound/Incision: Yes: Clean/Dry, Well Approximated, Steri Strips, Open to air Neurological: Yes: WNL, Alert, Oriented Labs: CBC, BMP 07/09/18 06:45 07/05/18 11:50 Delivery - Delivery Section: Low Flap Transverse Type of Anesthesia: Spinal EBL (cc): 700 Delivery, Single - Stages of Labor Date of Delivery: 07/06/18 Time of Delivery: 08:31 Time Placenta Delivered: 08:32 Placenta: Yes: Manual Removal - Condition of Editorial Writer/Pet Counselor Present: Yes Name: Christal Garcia Gender: Female Weight: 9 lb 10 oz Position: OT - 1 Minute Total Score: 9 5 Minutes Total Score: 9 - Feeding Plan Initial Plan: Elected not to breastfeed exclusively throughout hospitalization Discharge Summary Reason For Visit: previous section/ Diabetes Current Active Problems Status post repeat low transverse section (Acute) Procedures: Principal: Repeat Section Hospital Course: Unremarkable Condition: Good - Instructions Diet, Activity, Other Instructions: Physical activity Resume your normal everyday activity as tolerated no heavy lifting or exercise until seen by your surgeon. You may walk unlimited mo of and climb stairs. You may resume driving the car when you feel safe and comfortable behind the wheel. No sexual activity as instructed. Wound care If you have a bandage, leave it on, and keep dry for 48-72 hours. After that time discard the outer bandage. If they are tapes on the skin under the out of bandage leave them in place. They will peel off in the next 7 to 10 days. Do Not Peel them off. You may shower the day after surgery. If there are tapes present on the skin, you may shower over them. Diet There are no dietary restrictions. Eat healthy, high-fiber foods. Drink 6 to 8 glasses of liquid each day. This will assist in keeping your bowels are regular. Pain management You may take Tylenol or acetaminophen or Ibuprofen (for example, Motrin, Advil etc.) from my pain prescription medication is ordered should be taken as prescribed for moderate to severe pain. Call MD for any of the following: Severe pain not relieved by medication Fever of 101 or higher Excessive bleeding or drainage on dressing Inability to urinate Referrals: Carrie Lange MD [Staff Physician] - Disposition: HOME - Home Medications Comprehensive Discharge Medication List: Ambulatory Orders Insulin Pump/Infus. Set/Meter [Accu-Chek Combo System] 1 each MC TID 06/24/18 Pnv No.95/Ferrous Fum/Folic AC [ Vitamin Tablet] 1 each PO DAILY Aspirin [ASA -] 1 tab PO DAILY 07/05/18 Oxycodone HCl/Acetaminophen [Percocet 5-325 mg Tablet] 1 - 2 tab PO Q6H #20 tab MDD 6 07/06/18
[2018-07-10] MEDS: INSULIN SLIDING SCALE (NOVOLOG) 1 VIAL SQ SCH (07:00)
[2018-07-10 07:07] VITALS: BP 144/79; PULSE 80; TEMP 98.5
--- NOTE | 2018-07-10 11:56 | OP ---
DATE OF OPERATION: 07/06/2018 PREOPERATIVE DIAGNOSES: labor; previous section; diabetes type 2; intrauterine at 34 weeks and advanced maternal age; chronic hypertension; macrosomia; voluntary sterilization. OPERATION: Repeat section; bilateral salpingectomy. FINDINGS: Live infant delivered in the OP position. SURGEON: Carrie Lange MD ENGRAVER STEEL PLATE: MICHEL Ruiz POSTOPERATIVE DIAGNOSES: Live infant delivered in occiput posterior position. ANESTHESIA: Spinal. ESTIMATED BLOOD LOSS: 700 mL. PROCEDURE: The patient was taken to the operating room and placed in supine position, prepped and draped in usual sterile fashion. A timeout was performed in accordance with hospital regulations. A scalpel was then used to make a low transverse uterine incision through the patient's previous scar. Cautery was then used to go down through layers of the abdomen to the level of the fascia. The fascia was cut in the midline and cautery was then used to open the fascia in smiling fashion. Kochers were then used to bluntly and sharply dissect the rectus muscle off the fascia. The muscle was split in the midline, peritoneal cavity was then entered . Bladder retractor was then placed. A scalpel was then used to make a low transverse uterine incision. The incision was carried upward using bandage scissors. A live was delivered in OP position. Shoulders were delivered without difficulty. Cord was clamped and cut. Cord pH obtained, cord blood obtained. Placenta was manually extracted from the uterus. was handed to the pharmacy intake technician. The uterus was exteriorized and cleaned with clean lap pads. The uterine incision then closed using 0 Biosyn suture, 1st layer continuous and locking, 2nd layer imbricating the 1st layer. Hemostasis was achieved. Babcocks were used to grasp the fallopian tubes. LigaSure was then used to perform a bilateral salpingectomy. Specimen was submitted to pathology. Hemostasis was achieved. Ovaries were noted to be normal. Uterus interiorized, the abdominal cavity cleaned with clean lap pads. Abdominal sweep done, peritoneum closed using 0 Biosyn suture in a continuous fashion. Muscle was approximated in the midline. The fascia was closed in 2 parts with continuous 0 Biosyn suture. Subcutaneous was approximated using 0 Biosyn suture interrupted. Skin was then closed using 3-0 Vicryl in subcuticular fashion. The wound was washed and dressed, Steri-Strips placed. The patient tolerated the procedure well. Danielle [id number]
--- NOTE | 2018-07-14 17:09 | PATH ---
Surgical Pathology Report Patient Name: JACQUIE BERGER [facility]. Rec. 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 Specimen(s) Received A: PLACENTA B: PORTION OF RIGHT FALLOPIAN TUBE C: PORTION OF LEFT FALLOPIAN TUBE Clinical History 2012 and 2015, diabetic with insulin pump, labile blood pressures, history of demise at 36 weeks (2016) complicated by polyhydramnios, diabetes, hypertension Final Diagnosis A. PLACENTA, SECTION: 580 G THIRD TRIMESTER PLACENTA WITH TRIVASCULAR UMBILICAL CORD AND UNREMARKABLE PLACENTAL MEMBRANES. B. FALLOPIAN TUBE, RIGHT, SALPINGECTOMY: UNREMARKABLE FALLOPIAN TUBE (INCLUDING FIMBRIATED END AND FULL LUMINAL PORTION C. FALLOPIAN TUBE, LEFT, SALPINGECTOMY: UNREMARKABLE FALLOPIAN TUBE (INCLUDING FIMBRIATED END AND FULL LUMINAL PORTION Electronically Signed Shanon Neville M.D. Gross Description A. The specimen is received fresh labeled placenta and is a 580 gram, 18.5 x 14.5 x 2.6 cm. placenta with attached membranes and umbilical cord. The attached membranes are youngblood, thick, cloudy and insert marginally. The umbilical cord measures 14 cm. in length and averages 1.1 cm. in diameter. The cord inserts eccentrically, 3 cm. to the nearest margin. No true knots or strictures are identified. Cut surface of the umbilical cord reveals 3 vessels. The surface is juares blue with moderate fibrin deposition and caliber vessels. The maternal surface is red-brown with focal defects. Sectioning reveals red-brown, spongy parenchyma. No lesions are identified. Representative Personal Service sections are submitted in three cassettes as follows: 1- membrane rolls and umbilical cord; 2-3- full thickness sections of placenta. B. Received in formalin labeled "portion of right fallopian tube," is a 7 cm in length fimbriated portion of fallopian tube. The outer surface is juares purple and smooth. Sectioning reveals an unremarkable lumen. Representative Personal Service sections are submitted in 2 cassettes as follows: 1-fimbria; 2-cross sections of fallopian tube. C. Received in formalin labeled "portion of left fallopian tube," is a 7 cm in length fimbriated portion of fallopian tube. The outer surface is juares purple and smooth. Sectioning reveals an unremarkable lumen. Representative Personal Service sections are submitted in 2 cassettes as follows: 1-fimbria; 2-cross sections of fallopian tube. 07/12/2018 [facility]07/12/2018
== END 2018-07-10 07:30 | disposition home or self-care (01) | DRG 783 ==
LOC: JDEL 08:55 → JLDR 17:20 → J3W 07-06 10:59
PROVIDERS: ADMIT Obstetrics & Gynecology; ATTEND Obstetrics & Gynecology
PROC: 10D00Z1 Extraction of Products of Conception, Low, Open Approach (ICD-10-PCS; principal; 2018-07-06)
PROC: 0UB70ZZ Excision of Bilateral Fallopian Tubes, Open Approach (ICD-10-PCS; 2018-07-06)
DX: O60.14X0 Preterm labor third trimester with preterm delivery third trimester, not applicable or unspecified (principal); O24.12 Pre-existing type 2 diabetes mellitus, in childbirth; O10.913 Unspecified pre-existing hypertension complicating pregnancy, third trimester; O34.211 Maternal care for low transverse scar from previous cesarean delivery; N85.8 Other specified noninflammatory disorders of uterus; E11.9 Type 2 diabetes mellitus without complications; O99.214 Obesity complicating childbirth; E66.9 Obesity, unspecified; O36.63X0 Maternal care for excessive fetal growth, third trimester, not applicable or unspecified; Z3A.34 34 weeks gestation of pregnancy; Z30.2 Encounter for sterilization; Z68.33 Body mass index [BMI] 33.0-33.9, adult; Z37.0 Single live birth
CPT/HCPCS: 36415; 36600; 80053; 81003; 82803; 82962; 82977; 83010; 84550; 85025; 85044; 85610; 85730; 86593; 86850; 86900; 86901; 90715; 96372